=== PATIENT | female | born 1995 | race Caucasian/White ===

== ENCOUNTER → 2016-10-10 | Outpatient (CLI) | payer OTHER ==
[2016-10-11 15:27] LABS: HSV I IgG Interp NEGATIVE (NEGATIVE); HSV II IgG Interp NEGATIVE (NEGATIVE)
== END | disposition home or self-care (01) ==
LOC: MMGSC 14:43
PROVIDERS: ATTEND Family Medicine
DX: Z11.59 Encounter for screening for other viral diseases (principal); Z20.828 Contact with and (suspected) exposure to other viral communicable diseases
CPT/HCPCS: 36415; 86694; 86695; 86696; 87077; 87086; 87186

== ENCOUNTER → 2016-11-14 | Outpatient (CLI) | payer OTHER | LOC: MMGSC 13:54 | PROVIDERS: ATTEND Family Medicine | DX: N91.2 Amenorrhea, unspecified (principal); Z83.2 Family history of diseases of the blood and blood-forming organs and certain disorders involving the immune mechanism | CPT/HCPCS: 36415; 81241; 84703 ==

== ENCOUNTER → 2017-05-25 | Outpatient (CLI) | payer OTHER ==
[2017-05-25 21:24] LABS: Basophils % (A) 0 %; CH 29.3; CHCM 32.9; Eosinophils # (A) 0.1 k/uL (0-0.7); Eosinophils % (A) 2 %; HCT 44.3 % (34.0-46.0); HDW 2.27; HGB 14.2 gm/dL (11.4-16.0); Luc # (Auto) 0.12; Luc % (Auto) 1; Lymphocytes # (A) 2.1 k/uL (1.0-4.8); Lymphocytes % (A) 26 %; MCH 28.8 pg (25.0-35.0); MCHC 32.1 g/dL (31.0-37.0); MCV 89.5 fL (80.0-100.0); Mean Platelet Volume 8.2; Monocytes # (A) 0.3 k/uL (0-1.0); Monocytes % (A) 4 %; Neutrophils # (A) 5.3 k/uL (1.3-7.7); Neutrophils % (A) 66 %; RBC 4.94 m/uL (3.80-5.40); RDW 14.5 % (11.5-15.5); WBC (Perox) 7.78
[2017-05-25 22:15] LABS: ALT 29 U/L (9-52); AST 20 U/L (14-36); Alkaline Phosphatase 59 U/L (38-126); Anion Gap 13 mmol/L; Blood Urea Nitrogen 11 mg/dL (7-17); Calcium 9.9 mg/dL (8.4-10.2); Carbon Dioxide 20 mmol/L (22-30); Chloride 105 mmol/L (98-107); Cholesterol 230 mg/dL (<200); Glucose 94 mg/dL (74-99); HDL Cholesterol 65 mg/dL (40-60); Non-African American GFR(MDRD) >60 (>60 ml/min/1.73 sqM); Potassium 4.4 mmol/L (3.5-5.1); Sodium 138 mmol/L (137-145); Total Bilirubin 0.5 mg/dL (0.2-1.3); Total Protein 7.2 g/dL (6.3-8.2)
== END ==
LOC: MMGSC 09:45
PROVIDERS: ATTEND Family Medicine
DX: N97.9 Female infertility, unspecified (principal); R10.2 Pelvic and perineal pain; R03.0 Elevated blood-pressure reading, without diagnosis of hypertension
CPT/HCPCS: 36415; 80053; 80061; 83001; 83002; 84439; 84443; 85025

== ENCOUNTER 2018-08-29 12:34 | Emergency (ER) | payer OTHER ==
[2018-08-29] MEDS ORDERED: SODIUM CHLORIDE 0.9% 500 ML 500 ML IV STA (13:28)
[2018-08-29] MEDS ORDERED: KETOROLAC 30 MG/ML 1 ML VIAL IVP STA (13:29)
--- NOTE | 2018-08-29 13:49 | ED ---
Chest Pain HPI - General Chief Complaint: Chest Pain Stated Complaint: LEFT LUNG PAIN Time Seen by Provider: 08/29/18 13:15 Source: patient Mode of arrival: ambulatory Limitations: no limitations - History of Present Illness Initial Comments: 23-year-old female complaining of left-sided chest pain 5 days. Patient states that 5 days ago initially felt like nerve pain under her left breast, she states is random sharp, burning in sensation. She states that now it has since spread to her entire chest. At first she thought was initially due to anxiety however she has felt as though her heart skips occasional beat. Patient denies any lower extremities swelling, pain with deep inspiration, cough , fever, chills, IV drug use, pain or swelling, lower extremity edema, nausea, vomiting, jaw pain, upper extremity paresthesias, recent travel on an airplane or immobilization, recent surgery, history of cancer, dyspnea, dyspnea on exertion. Patient does admit to having a viral stomach illness last week however she denies any current abdominal pain, diarrhea, hemoptysis, melena or hematochezia. Remainder ROS was negative. Pt denies . Upon arrival diastolic BP reading elevated, will repeat. HR 98. Patient appears well signs of acute distress. - Related Data Home Medications Medication Instructions Recorded Confirmed [id number] 2 tab PO BID PRN 08/29/18 08/29/18 [Excedrin] Ibuprofen [Motrin] 600 mg PO BID PRN 08/29/18 08/29/18 Previous Rx's Medication Instructions Recorded ALPRAZolam [Xanax] 0.25 mg PO DAILY PRN 3 Days #3 tab 08/29/18 Allergies Allergy/AdvReac Type Severity Reaction Status Date / Time No Known Allergies Allergy Verified 08/29/18 13:36 Review of Systems ROS Statement: Those systems with pertinent positive or pertinent negative responses have been documented in the HPI. ROS Other: All systems not noted in ROS Statement are negative. EKG Findings - EKG Comments: EKG Findings:: A 12-lead EKG was performed and shows the following: Rate is 82bpm, and rhythm is normal sinus with sinus arrhythmia. There are normal QRS complexes and normal R-wave progression. ST segments have no elevation or depression, and LA segments appear normal. Normal EKG. Past Medical History Past Medical History: No Reported History Additional Past Medical History / Comment(s): last one on monday or monday of this week History of Any Multi-Drug Resistant Organisms: None Reported Past Surgical History: Tonsillectomy Additional Past Surgical History / Comment(s): in 7th grade Past Anesthesia/Blood Transfusion Reactions: Postoperative Nausea & Vomiting ( PONV) Past Psychological History: Anxiety, Depression Smoking Status: Former smoker Past Alcohol Use History: None Reported Past Drug Use History: None Reported - Past Family History Father Additional Family Medical History / Comment(s): Father is age 50 with history of alcoholism Mother Family Medical History: Osteoarthritis (OA) Additional Family Medical History / Comment(s): Mother is age 46 and has osteoarthritis and ADD Brother(s) Additional Family Medical History / Comment(s): Patient has 2 younger brothers with no major medical problems. General Exam - General Exam Comments Initial Comments: General: The patient is awake and alert, in no distress, and does not appear acutely ill. Eye: Pupils are equal, round and reactive to light, extra-ocular movements are intact. No nystagmus. There is normal conjunctiva bilaterally. No signs of icterus. Ears, nose, mouth and throat: There are moist mucous membranes and no oral lesions. Neck: The neck is supple, there is no tenderness or JVD. Cardiovascular: There is a regular rate and rhythm. No murmur, rub or gallop is appreciated. Respiratory: Lungs are clear to auscultation, respirations are non-labored, breath sounds are equal. No wheezes, stridor, rales, or rhonchi. Gastrointestinal: Soft, non-distended, non-tender abdomen without masses or organomegaly noted. There is no rebound or guarding present. No CVA tenderness. Bowel sounds are unremarkable. Musculoskeletal: No pain no patient of the anterior chest wall. Normal ROM, no tenderness. Strength 5/5. Sensation intact. Pulses equal bilaterally 2+. Neurological: A&O x 3. CN II-XII intact, There are no obvious motor or sensory deficits. Coordination appears grossly intact. Speech is normal. Skin: Skin is warm and dry and no rashes or lesions are noted. Negative Trevon , no pain along the deep venous system of the lower extremity. No lower extremity edema. Psychiatric: Cooperative, appropriate mood & affect, normal judgment. Limitations: no limitations Course Vital Signs 08/29/18 08/29/18 13:00 15:30 Temperature 98.5 F 99.1 F Pulse Rate 98 80 Respiratory 18 19 Rate Blood Pressure 134/95 123/86 O2 Sat by Pulse 100 100 Oximetry Chest Pain MDM - MDM Patient presented with atypical chest pain. Patient appears well no signs of distress. Vital signs within acceptable limits. Physical examination no abnormal findings noted. Trop, EKG and D-dimer within normal limits. Remainder of laboratory findings unremarkable. Patient is currently menstruating. HCG negative. The side effects patient is stable for discharge with further outpatient follow-up and evaluation. Patient's group with plan and discharged. Patient thinks this is likely due to her anxiety. Patient states she is out of her Ativan she takes 1 mg daily and states she is between primary care physicians beginning care with a new one shortly. Patient was given outside prescription for 0.25 mg of Xanax daily, only 3 tabs. Proper administered she discussed at length the patient as well as risk of overdose. Patient agreeable with plan and discharged. Return parameters discussed at length the patient verbalizes understanding. Case discussed with Dr. Rankin prior to patient's discharge who agrees the impression and plan. Patient discharged appearing well in stable condition. Disposition Clinical Impression: Atypical chest pain Disposition: HOME SELF-CARE Condition: Good Instructions: Chest Pain (ED) Additional Instructions: Please use medication as discussed. Please follow-up with family doctor in the next 1-2 days. Please return to emergency room if the symptoms increase or worsen or for any other concerns, as discussed. Prescriptions: ALPRAZolam [Xanax] 0.25 mg PO DAILY PRN 3 Days #3 tab PRN Reason: Anxiety Is patient prescribed a controlled substance at d/c from ED?: No Referrals: Janet Georges MD [Primary Care Provider] - 1-2 days Time of Disposition: 15:25
[2018-08-29 14:55] LABS: Basophils % (A) 0 %; Eosinophils # (A) 0.1 k/uL (0-0.7); Eosinophils % (A) 1 %; HCT 41.3 % (34.0-46.0); HGB 13.1 gm/dL (11.4-16.0); Lymphocytes # (A) 1.7 k/uL (1.0-4.8); Lymphocytes % (A) 22 %; MCH 26.6 pg (25.0-35.0); MCHC 31.6 g/dL (31.0-37.0); Mean Platelet Volume 6.7; Monocytes # (A) 0.2 k/uL (0-1.0); Monocytes % (A) 3 %; Neutrophils # (A) 5.5 k/uL (1.3-7.7); Neutrophils % (A) 72 %; Platelet Count 318 k/uL (150-450); RBC 4.92 m/uL (3.80-5.40); RDW 13.7 % (11.5-15.5); WBC 7.6 k/uL (3.8-10.6)
[2018-08-29 14:56] LABS: Appearance,Urine Clear (Clear); Bilirubin,Urine Negative (Negative); Blood,Urine Large (Negative); Color,Urine Yellow; Glucose,Urine (UA) Negative (Negative); Ketones,Urine Trace (Negative); Leukocyte Esterase,Urine Negative (Negative); Mucus,Urine Rare /hpf; Nitrite,Urine Negative (Negative); Protein,Urine Negative (Negative); RBC,Urine 57 /hpf (0-5); Specific Gravity,Urine 1.016 (1.001-1.035); Squamous Epithelial Cell,Urine <1 /hpf (0-4); Urobilinogen,Urine <2.0 mg/dL (<2.0)
[2018-08-29 15:05] LABS: D-Dimer 0.21 mg/L FEU (<0.60)
[2018-08-29 15:06] LABS: ALT 34 U/L (9-52); AST 20 U/L (14-36); Albumin 4.4 g/dL (3.5-5.0); Alkaline Phosphatase 51 U/L (38-126); Anion Gap 9 mmol/L; Blood Urea Nitrogen 15 mg/dL (7-17); Calcium 9.4 mg/dL (8.4-10.2); Carbon Dioxide 25 mmol/L (22-30); Chloride 107 mmol/L (98-107); Glucose 92 mg/dL (74-99); Magnesium 2.1 mg/dL (1.6-2.3); Partial Thromboplastin Time 23.3 sec (22.0-30.0); Prothrombin Time 10.3 sec (9.0-12.0); Sodium 141 mmol/L (137-145); Total Bilirubin 0.4 mg/dL (0.2-1.3)
[2018-08-29 15:14] LABS: Creatine Kinase 60 U/L (30-135)
--- NOTE | 2018-08-29 15:16 | XR ---
EXAMINATION TYPE: XR chest 2V DATE OF EXAM: 08/29/2018 COMPARISON: None HISTORY: 23-year-old female with pain TECHNIQUE: PA and lateral views FINDINGS: The cardiomediastinal silhouette, aorta, and pulmonary vasculature are within normal limits. Lungs an d pleural spaces are clear. IMPRESSION: No acute cardiopulmonary process.
[2018-08-29 15:27] LABS: Creatine Kinase MB 0.2 ng/mL (0.0-2.4); Troponin I <0.012 ng/mL (0.000-0.034)
[2018-08-29 15:31] VITALS: BP 123/86; PULSE 80; RESP 19; TEMP 99.1
== END 2018-08-29 15:41 | disposition home or self-care (01) ==
LOC: EC 12:34
DX: R07.89 Other chest pain (principal); F41.9 Anxiety disorder, unspecified; Z87.891 Personal history of nicotine dependence
CPT/HCPCS: 36415; 93005; 85379; 80053; 82550; 82553; 83735; 84484; 85025; 85610; 85730; 81001; 81025; 71046; 99285; 96374; 96361; J1885

== ENCOUNTER → 2018-11-06 | Outpatient (CLI) | payer OTHER ==
--- NOTE | 2018-11-07 14:17 | ECHOF ---
Referral Reason:R00.0 Tachycardia MEASUREMENTS -------- HEIGHT: 157.5 cm WEIGHT: 65.8 kg BP: RVIDd: 2.2 cm (< 3.3) IVSd: 0.9 cm (0.6 - 1.1) LVIDd: 4.2 cm (3.9 - 5.3) LVPWd: 1.0 cm (0.6 - 1.1) IVSs: 1.1 cm LVIDs: 3.1 cm LVPWs: 1.3 cm LA Diam: 2.6 cm (2.7 - 3.8) LAESV Index (A-L): 13.18 ml/m Ao Diam: 3.2 cm (2.0 - 3.7) AV Cusp: 2.3 cm (1.5 - 2.6) LA Diam: 2.8 cm (2.7 - 3.8) EPSS: 0.5 cm MV E Mina: 0.65 m/s MV DecT: 238 ms MV A Mina: 0.84 m/s MV E/A Ratio: 0.77 RAP: 5.00 mmHg RVSP: 11.74 mmHg MV EF SLOPE: 92.36 mm/s (70 - 150) MV EXCURSION: 1.84 cm (> 18.000) FINDINGS -------- Sinus rhythm. This was a technically good study. LV size, wall thickness and systolic function are normal, with an EF greater than 55%. The left crystal tricular size is normal. The right ventricle is normal in size. The left atrial size is normal. The right atrial size is normal. The aortic valve is trileaflet, and appears structurally normal. No aortic stenosis or regurgitation. The mitral valve is normal. There is trace mitral regurgitation. Mild tricuspid regurgitation present. There is no evidence of pulmonary hypertension. The right v entricular systolic pressure, as measured by Doppler, is 11.74mmHg. Trace/mild (physiologic) pulmonic regurgitation. The aortic root size is normal. There is no pericardial effusion. CONCLUSIONS -------- 1. Sinus rhythm. 2. This was a technically good study. 3. LV size, wall thickness and systolic function are normal, with an EF greater than 55%. 4. The left ventricular size is normal. 5. The left atrial size is normal. 6. The aortic valve is trileaflet, and appears structurally normal. No aortic stenosis or regurgitati on. 7. There is trace mitral regurgitation. 8. Mild tricuspid regurgitation present. 9. There is no evidence of pulmonary hypertension. 10. Trace/mild (physiologic) pulmonic regurgitation. 11. The aortic root size is normal. 12. There is no pericardial effusion. ORTHOPEDIC MECHANIC: Anita Kearney RDCS
== END | disposition home or self-care (01) ==
LOC: RADECHMAIN 15:39
PROVIDERS: ATTEND Family Medicine
DX: I07.1 Rheumatic tricuspid insufficiency (principal)
CPT/HCPCS: 93306

== ENCOUNTER 2019-02-11 19:09 | Emergency (ER) | payer OTHER ==
[2019-02-11] MEDS ORDERED: SODIUM CHLORIDE 0.9% 1,000 ML IV STA (19:36)
[2019-02-11 20:02] VITALS: RESP 16
[2019-02-11 20:05] LABS: Basophils % (A) 0 %; Eosinophils # (A) 0.2 k/uL (0-0.7); Eosinophils % (A) 1 %; HGB 13.6 gm/dL (11.4-16.0); Lymphocytes # (A) 2.4 k/uL (1.0-4.8); Lymphocytes % (A) 16 %; MCH 28.3 pg (25.0-35.0); MCHC 33.1 g/dL (31.0-37.0); MCV 85.4 fL (80.0-100.0); Mean Platelet Volume 6.8; Monocytes # (A) 0.5 k/uL (0-1.0); Monocytes % (A) 3 %; Neutrophils # (A) 12.1 k/uL (1.3-7.7); Neutrophils % (A) 79 %; Platelet Count 312 k/uL (150-450); RDW 13.1 % (11.5-15.5); WBC 15.3 k/uL (3.8-10.6)
[2019-02-11 20:09] LABS: Appearance,Urine Clear (Clear); Bilirubin,Urine Negative (Negative); Blood,Urine Negative (Negative); Color,Urine Colorless; Glucose,Urine (UA) Negative (Negative); Ketones,Urine Trace (Negative); Leukocyte Esterase,Urine Negative (Negative); Nitrite,Urine Negative (Negative); Protein,Urine Negative (Negative); Specific Gravity,Urine 1.005 (1.001-1.035); Urobilinogen,Urine <2.0 mg/dL (<2.0)
[2019-02-11 20:15] LABS: ALT 14 U/L (9-52); AST 18 U/L (14-36); African American GFR (CKD) >90 (>60 ml/min/1.73 sqM); Albumin 4.5 g/dL (3.5-5.0); Alkaline Phosphatase 55 U/L (38-126); Anion Gap 9 mmol/L; Blood Urea Nitrogen 10 mg/dL (7-17); Calcium 9.4 mg/dL (8.4-10.2); Carbon Dioxide 22 mmol/L (22-30); Chloride 104 mmol/L (98-107); Glucose 97 mg/dL (74-99); Phosphorus 4.2 mg/dL (2.5-4.5); Potassium 3.7 mmol/L (3.5-5.1); Sodium 135 mmol/L (137-145); Total Bilirubin 0.3 mg/dL (0.2-1.3)
--- NOTE | 2019-02-11 20:31 | ED ---
Recheck HPI - General Chief Complaint: Recheck/Abnormal Lab/Rx Stated Complaint: palpitations/poss med withdrawal Time Seen by Provider: 02/11/19 19:35 Source: patient, RN notes reviewed, old records reviewed Mode of arrival: ambulatory Limitations: no limitations - History of Present Illness Initial Comments: This is a 23-year-old female the ER for evaluation. This patient resents today for evaluation in regards to palpitations. Patient has had palpitations occasionally for years. She currently is positive for , recently taken off her Adderall concerned that she may be having a medication reaction of some sort. Symptoms have been persistent for a few weeks now and patient's presented today for evaluation, she was sent ER by family doctor for evaluation MD Complaint: other -: week(s) Returns Today for: other (Occasionally with recurrent palpitations) Context: planned re-check (Sent to ER for evaluation by primary care) Treatments Prior to Arrival: other (No new medications) - Related Data Home Medications Medication Instructions Recorded Confirmed Ferrous Sulfate [Feosol] 325 mg PO DAILY 02/11/19 02/11/19 [id number] Acid 1 cap PO DAILY 02/11/19 02/11/19 [-U Capsule (formulary)] Allergies Allergy/AdvReac Type Severity Reaction Status Date / Time No Known Allergies Allergy Verified 02/11/19 19:46 Review of Systems ROS Statement: Those systems with pertinent positive or pertinent negative responses have been documented in the HPI. ROS Other: All systems not noted in ROS Statement are negative. Past Medical History Past Medical History: No Reported History Additional Past Medical History / Comment(s): last one on monday or monday of this week History of Any Multi-Drug Resistant Organisms: None Reported Past Surgical History: Tonsillectomy Additional Past Surgical History / Comment(s): in 7th grade Past Anesthesia/Blood Transfusion Reactions: Postoperative Nausea & Vomiting (PONV) Past Psychological History: Anxiety, Depression Smoking Status: Former smoker Past Alcohol Use History: None Reported Past Drug Use History: None Reported - Past Family History Father Additional Family Medical History / Comment(s): Father is age 50 with history of alcoholism Mother Family Medical History: Osteoarthritis (OA) Additional Family Medical History / Comment(s): Mother is age 46 and has osteoarthritis and ADD Brother(s) Additional Family Medical History / Comment(s): Patient has 2 younger brothers with no major medical problems. General Exam Limitations: no limitations General appearance: alert, in no apparent distress Head exam: Present: atraumatic, normocephalic, normal inspection Eye exam: Present: normal appearance, PERRL, EOMI. Absent: scleral icterus, conjunctival injection, periorbital swelling ENT exam: Present: normal exam, mucous membranes moist Neck exam: Present: normal inspection. Absent: tenderness, meningismus, lymphadenopathy Respiratory exam: Present: normal lung sounds bilaterally. Absent: respiratory distress, wheezes, rales, rhonchi, stridor Cardiovascular Exam: Present: regular rate, normal rhythm, normal heart sounds. Absent: systolic murmur, diastolic murmur, rubs, gallop, clicks GI/Abdominal exam: Present: soft, normal bowel sounds. Absent: distended, tenderness, guarding, rebound, rigid Extremities exam: Present: normal inspection, full ROM, normal capillary refill. Absent: tenderness, pedal edema, joint swelling, calf tenderness Back exam: Present: normal inspection Neurological exam: Present: alert, oriented X3, CN II-XII intact Psychiatric exam: Present: normal affect, normal mood Skin exam: Present: warm, dry, intact, normal color. Absent: rash Course Vital Signs 02/11/19 02/11/19 02/11/19 19:23 20:00 21:00 Temperature 99.0 F 98.0 F Pulse Rate 98 80 81 Respiratory 18 16 16 Rate Blood Pressure 113/77 124/69 122/68 O2 Sat by Pulse 99 98 98 Oximetry - Reevaluation(s) Reevaluation #1: Medical record is reviewed Patient is no significant acute distress Medical Decision Making - Medical Decision Making 23 female the ER for palpitations history of palpitations no known diagnosis she has one altered monitor in the past. Patient is not currently taking Adderall secondary to recent positive . Labs look good electrolytes are normal EKG and rhythm strip are normal. Patient can be discharged home - Lab Data Result diagrams: 02/11/19 19:53 02/11/19 19:53 Lab Results 02/11/19 02/11/19 02/11/19 Range/Units 19:53 19:53 19:53 WBC 15.3 H (3.8-10.6) k/uL RBC 4.80 (3.80-5.40) m/uL Hgb 13.6 (11.4-16.0) gm/dL Hct 41.0 (34.0-46.0) % MCV 85.4 (80.0-100.0) fL MCH 28.3 (25.0-35.0) pg MCHC 33.1 (31.0-37.0) g/dL RDW 13.1 (11.5-15.5) % Plt Count 312 (150-450) k/uL Neutrophils % 79 % Lymphocytes % 16 % Monocytes % 3 % Eosinophils % 1 % Basophils % 0 % Neutrophils # 12.1 H (1.3-7.7) k/uL Lymphocytes # 2.4 (1.0-4.8) k/uL Monocytes # 0.5 (0-1.0) k/uL Eosinophils # 0.2 (0-0.7) k/uL Basophils # 0.0 (0-0.2) k/uL Sodium 135 L (137-145) mmol/L Potassium 3.7 (3.5-5.1) mmol/L Chloride 104 (98-107) mmol/L Carbon Dioxide 22 (22-30) mmol/L Anion Gap 9 mmol/L BUN 10 (7-17) mg/dL Creatinine 0.49 L (0.52-1.04) mg/dL Est GFR (CKD-EPI)AfAm >90 (>60 ml/min/1.73 sqM) Est GFR (CKD-EPI)NonAf >90 (>60 ml/min/1.73 sqM) Glucose 97 (74-99) mg/dL Calcium 9.4 (8.4-10.2) mg/dL Phosphorus 4.2 (2.5-4.5) mg/dL Magnesium 2.0 (1.6-2.3) mg/dL Total Bilirubin 0.3 (0.2-1.3) mg/dL AST 18 (14-36) U/L ALT 14 (9-52) U/L Alkaline Phosphatase 55 (38-126) U/L Total Protein 7.0 (6.3-8.2) g/dL Albumin 4.5 (3.5-5.0) g/dL TSH 0.449 L (0.465-4.680) mIU/L HCG, Quant 589182.0 mIU/mL Urine Color Colorless Urine Appearance Clear (Clear) Urine pH 6.0 (5.0-8.0) Ur Specific [place] 1.005 (1.001-1.035) Urine Protein Negative (Negative) Urine Glucose (UA) Negative (Negative) Urine Ketones Trace H (Negative) Urine Blood Negative (Negative) Urine Nitrite Negative (Negative) Urine Bilirubin Negative (Negative) Urine Urobilinogen <2.0 (<2.0) mg/dL Ur Leukocyte Esterase Negative (Negative) - Radiology Data Radiology results: report reviewed (Ultrasound shows positive heart), image reviewed Disposition Clinical Impression: Disposition: HOME SELF-CARE Condition: Good Instructions (If sedation given, give patient instructions): (ED) Is patient prescribed a controlled substance at d/c from ED?: No Referrals: Magnus Peng MD [Primary Care Provider] - 1-2 days
[2019-02-11 21:02] VITALS: BP 122/68; PULSE 81; TEMP 98
--- NOTE | 2019-02-11 21:17 | US ---
EXAMINATION TYPE: Transabdominal DATE OF EXAM: 02/11/2019 8:47 PM COMPARISON: NONE CLINICAL HISTORY: Pain. Pain per order. . EXAM PERFORMED: Transabdominal (TA) EXAM MEASUREMENTS: GESTATIONAL AGE / DATING Physician Established: Not yet established. Dates by LMP: (9 weeks/4 days) EDC: 09/12/2019 Dates by First Scan: No previous, this is first scan (8 weeks/4 days) EDC: 09/19/2019 Dates by Current Scan for: (8 weeks/4 days) EDC: 09/19/2019 MATERNAL ANATOMY Uterus: 9.9 x 9.4 x 8.4 cm Right Ovary: 4.3 x 2.7 x 1.7 cm Left Ovary: 3.3 x 2.0 x 2.1 cm Post CDS / Adnexa: appears wnl Presence of free fluid: none seen Presence of corpus luteal cyst: Area of mixed echogenicity seen left ovary measurin.6 x 1.4 x 1.5 cm Presence of subchorionic bleed: Hypoechoic areas seen adjacent to gestational sac: #1 measurin.4 x 4.1 x 1.2 cm. #2 measurin.9 x 1.6 x 1.0 cm. GESTATION / SURVEY CRL: 2.04 cm (8 weeks/4 days) Yolk Sac (normal less than 6mm): 3 mm Heart Rate: 186 bpm Rhythm: ?Increased heart rate IUP: Viable IUP Date of LMP: 12/06/2018 IMPRESSION: There is probably small subchorionic hemorrhage. The ultrasound gestational age is 8 weeks 4 days.
== END 2019-02-11 21:02 | disposition home or self-care (01) ==
LOC: EC 19:09
DX: O99.89 Other specified diseases and conditions complicating pregnancy, childbirth and the puerperium (principal); R00.2 Palpitations; Z87.891 Personal history of nicotine dependence; Z79.899 Other long term (current) drug therapy; Z3A.08 8 weeks gestation of pregnancy
CPT/HCPCS: 36415; 76801; 80053; 81003; 83735; 84100; 84443; 84702; 85025; 87086; 96360; 99285

== ENCOUNTER → 2019-05-02 | Outpatient (CLI) | payer OTHER ==
--- NOTE | 2019-05-03 10:44 | ECHOF ---
Referral Reason:R00.2 palpitations MEASUREMENTS -------- HEIGHT: 157.5 cm WEIGHT: 68.0 kg BP: RVIDd: 2.6 cm (< 3.3) IVSd: 0.9 cm (0.6 - 1.1) LVIDd: 4.8 cm (3.9 - 5.3) LVPWd: 0.7 cm (0.6 - 1.1) IVSs: 1.1 cm LVIDs: 3.5 cm LVPWs: 1.3 cm LA Diam: 2.6 cm (2.7 - 3.8) LAESV Index (A-L): 19.73 ml/m Ao Diam: 3.1 cm (2.0 - 3.7) AV Cusp: 2.2 cm (1.5 - 2.6) LA Diam: 3.5 cm (2.7 - 3.8) MV EXCURSION: 17.766 mm (> 18.000) MV EF SLOPE: 76 mm/s (70 - 150) EPSS: 1.2 cm MV E Mina: 0.64 m/s MV DecT: 216 ms MV A Mina: 0.75 m/s MV E/A Ratio: 0.85 RAP: 5.00 mmHg RVSP: 24.08 mmHg FINDINGS -------- Sinus rhythm. This was a technically good study. LV size, wall thickness and systolic function are normal, with an EF greater than 55%. The left crystal tricular size is normal. The right ventricle is normal in size. The left atrial size is normal. Normal LA size by volume 22+/-6 ml/m2. The right atrial size is normal. The aortic valve is trileaflet, and appears structurally normal. No aortic stenosis or regurgitation. Mild mitral annular calcification present. Mild mitral regurgitation is present. No regurgitation noted There is no evidence of pulmonary hypertension. The right ventricular syst olic pressure, as measured by Doppler, is 24.08mmHg. There is no pulmonic regurgitation present. The aortic root size is normal. There is no pericardial effusion. CONCLUSIONS -------- 1. Sinus rhythm. 2. This was a technically good study. 3. LV size, wall thickness and systolic function are normal, with an EF greater than 55%. 4. The left ventricular size is normal. 5. The right ventricle is normal in size. 6. The left atrial size is normal. 7. Normal LA size by volume 22+/-6 ml/m2. 8. The right atrial size is normal. 9. The aortic valve is trileaflet, and appears structurally normal. No aortic stenosis or regurgitati on. 10. Mild mitral annular calcification present. 11. Mild mitral regurgitation is present. 12. No regurgitation noted 13. There is no evidence of pulmonary hypertension. 14. The right ventricular systolic pressure, as measured by Doppler, is 24.08mmHg. 15. There is no pulmonic regurgitation present. 16. The aortic root size is normal. 17. There is no pericardial effusion. OPERATIONAL INTELLIGENCE ANALYST: Anita Kearney RDCS
== END | disposition home or self-care (01) ==
LOC: RADECHMAIN 16:26
PROVIDERS: ATTEND Internal Medicine Cardiovascular Disease
DX: I05.1 Rheumatic mitral insufficiency (principal)
CPT/HCPCS: 93306

== ENCOUNTER 2019-06-17 00:42 | Emergency (ER) | payer OTHER ==
[2019-06-17 00:52] VITALS: TEMP 98.2
--- NOTE | 2019-06-17 01:01 | ED ---
Extremity Problem HPI - General Chief complaint: Extremity Problem,Nontraumatic Stated complaint: leg pain Source: patient Mode of arrival: ambulatory Limitations: no limitations - History of Present Illness Initial comments: 24-year-old female currently 28 weeks presenting for tightness in the left thigh. Patient states she had a tight sensation left eye for the past day. Patient states that she was told this could be a blood clot. Patient states that she has not had any trauma or injury to the leg. Denies any recent surgeries. She denies any chest pain shortness of breath. Patient denies any swelling of the right lower extremity. Patient presents immersed. This evening when symptoms persisted to rule out deep venous thrombosis. Review of systems negative patient appears well upon arrival and laboratory. - Related Data Home Medications Medication Instructions Recorded Confirmed Ferrous Sulfate [Feosol] 325 mg PO DAILY 02/11/19 02/11/19 [id number]-[id number] Acid 1 cap PO DAILY 02/11/19 02/11/19 [-U Capsule (formulary)] Allergies Allergy/AdvReac Type Severity Reaction Status Date / Time No Known Allergies Allergy Verified 06/17/19 00:51 Review of Systems ROS Statement: Those systems with pertinent positive or pertinent negative responses have been documented in the HPI. ROS Other: All systems not noted in ROS Statement are negative. Past Medical History Past Medical History: No Reported History Additional Past Medical History / Comment(s): last one on monday or monday of this week History of Any Multi-Drug Resistant Organisms: None Reported Past Surgical History: Tonsillectomy Additional Past Surgical History / Comment(s): in 7th grade Past Anesthesia/Blood Transfusion Reactions: Postoperative Nausea & Vomiting (PONV) Past Psychological History: Anxiety, Depression Smoking Status: Former smoker Past Alcohol Use History: None Reported Past Drug Use History: None Reported - Past Family History Father Additional Family Medical History / Comment(s): Father is age 50 with history of alcoholism Mother Family Medical History: Osteoarthritis (OA) Additional Family Medical History / Comment(s): Mother is age 46 and has osteoarthritis and ADD Brother(s) Additional Family Medical History / Comment(s): Patient has 2 younger brothers with no major medical problems. General Exam - General Exam Comments Initial Comments: General: The patient is awake and alert, in no distress, and does not appear acutely ill. Eye: Pupils are equal, round and reactive to light, extra-ocular movements are intact. No nystagmus. There is normal conjunctiva bilaterally. No signs of icterus. Ears, nose, mouth and throat: There are moist mucous membranes and no oral lesions. Neck: The neck is supple, there is no tenderness or JVD. Cardiovascular: There is a regular rate and rhythm. No murmur, rub or gallop is appreciated. Respiratory: Lungs are clear to auscultation, respirations are non-labored, breath sounds are equal. No wheezes, stridor, rales, or rhonchi. Musculoskeletal: Normal ROM, no tenderness. Strength 5/5. Sensation intact. Pulses equal bilaterally 2+. Neurological: A&O x 3. CN II-XII intact grossly, There are no obvious motor or sensory deficits. Coordination appears grossly intact. Speech is normal. Skin: Skin is warm and dry and no rashes or lesions are noted. (-) Homans. No LE edema or swelling. No calf swelling. Patient has no masses, redness or erythema of the LE b/l. No pain to palpation of posterior knee. No point localized pain to palpation. Patient point to a circumferential area just proximal to the right knee when asked where "tight cramping" sensation is Psychiatric: Cooperative, appropriate mood & affect, normal judgment. Limitations: no limitations Course Vital Signs 06/17/19 00:49 Temperature 98.2 F Pulse Rate 108 H Respiratory 16 Rate Blood Pressure 107/69 O2 Sat by Pulse 97 Oximetry Medical Decision Making - Medical Decision Making 24-year-old female presents emergency department for evaluation of thigh sensation in right leg. Cramping at times. Presented for r/o DVT. No abnormalities on physical examination. US (-) deep venous thrombosis, electrolytes within acceptable limits. Patient appears well. Patient will be discharged with outpatient PCP f/u. .Repeat US may be obtained in 1 week for persistent symptoms. Patient agreeable with discharge. Case discussed with attending. - Lab Data Result diagrams: 06/17/19 01:41 Lab Results 06/17/19 Range/Units 01:41 Sodium 135 L (137-145) mmol/L Potassium 4.0 (3.5-5.1) mmol/L Chloride 106 (98-107) mmol/L Carbon Dioxide 22 (22-30) mmol/L Anion Gap 7 mmol/L BUN 6 L (7-17) mg/dL Creatinine 0.46 L (0.52-1.04) mg/dL Est GFR (CKD-EPI)AfAm >90 (>60 ml/min/1.73 sqM) Est GFR (CKD-EPI)NonAf >90 (>60 ml/min/1.73 sqM) Glucose 99 (74-99) mg/dL Calcium 9.2 (8.4-10.2) mg/dL Disposition Clinical Impression: Leg cramping Disposition: HOME SELF-CARE Condition: Good Instructions (If sedation given, give patient instructions): Leg Cramps (ED) Additional Instructions: Please use medication as discussed. Please follow-up with family doctor in the next 2 days if symptoms are persistent you may repeat ultrasound in 1 week. Please return to emergency room if the symptoms increase or worsen or for any other concerns. Is patient prescribed a controlled substance at d/c from ED?: No Referrals: Magnus Peng MD [Primary Care Provider] - 1-2 days Time of Disposition: 01:54
--- NOTE | 2019-06-17 01:47 | US ---
EXAMINATION TYPE: US venous doppler duplex LE RT DATE OF EXAM: 06/17/2019 1:40 AM COMPARISON: NONE CLINICAL HISTORY: posterior knee pain, preg, sent r/o dvt. SIDE PERFORMED: Right TECHNIQUE: The lower extremity deep venous system is examined utilizing real time linear array sonog aliyah with graded compression, doppler sonography and color-flow sonography. VESSELS IMAGED: External Iliac Vein (EIV) Common Femoral Vein Deep Femoral Vein Greater Saphenous Vein * Femoral Vein Popliteal Vein Small Saphenous Vein * Proximal Calf Veins (* superficial vessels) Right Leg: Negative for DVT IMPRESSION: No evidence of deep venous thrombosis in the right leg. Negative exam.
[2019-06-17 02:23] LABS: African American GFR (CKD) >90 (>60 ml/min/1.73 sqM); Anion Gap 7 mmol/L; Blood Urea Nitrogen 6 mg/dL (7-17); Calcium 9.2 mg/dL (8.4-10.2); Carbon Dioxide 22 mmol/L (22-30); Chloride 106 mmol/L (98-107); Glucose 99 mg/dL (74-99); Sodium 135 mmol/L (137-145)
[2019-06-17 03:47] VITALS: BP 117/75; PULSE 97; RESP 15
== END 2019-06-17 03:06 | disposition home or self-care (01) ==
LOC: EC 00:42
DX: O99.89 Other specified diseases and conditions complicating pregnancy, childbirth and the puerperium (principal); R25.2 Cramp and spasm; Z87.891 Personal history of nicotine dependence; Z3A.28 28 weeks gestation of pregnancy; Z82.61 Family history of arthritis
CPT/HCPCS: 36415; 80048; 99284

== ENCOUNTER → 2019-10-14 | Outpatient (CLI) | payer OTHER ==
[2019-10-14 09:28] LABS: HDL Cholesterol 58 mg/dL (40-60); Triglycerides 275 mg/dL (<150)
[2019-10-14 09:34] LABS: LDL Cholesterol,Calculated 240 mg/dL (0-99)
[2019-10-14 09:37] LABS: Cholesterol 353 mg/dL (<200)
--- NOTE | 2019-10-14 10:34 | ECHOF ---
Referral Reason:E78.00 Pure hypercholesterolemia, unspecified MEASUREMENTS -------- HEIGHT: 157.5 cm WEIGHT: 72.6 kg BP: RVIDd: 2.7 cm (< 3.3) IVSd: 0.7 cm (0.6 - 1.1) LVIDd: 4.7 cm (3.9 - 5.3) LVPWd: 1.1 cm (0.6 - 1.1) IVSs: 1.1 cm LVIDs: 3.6 cm LVPWs: 1.1 cm LAESV Index (A-L): 17.33 ml/m Ao Diam: 2.9 cm (2.0 - 3.7) AV Cusp: 2.1 cm (1.5 - 2.6) LA Diam: 2.9 cm (2.7 - 3.8) MV EXCURSION: 13.970 mm (> 18.000) MV EF SLOPE: 110 mm/s (70 - 150) EPSS: 0.9 cm MV E Mina: 0.57 m/s MV DecT: 167 ms MV A Mina: 0.72 m/s MV E/A Ratio: 0.80 AR PHT: 293 ms RAP: 5.00 mmHg RVSP: 17.74 mmHg FINDINGS -------- Sinus rhythm. This was a technically good study. The left ventricular size is normal. Left ventricular wall thickness is normal. Overall left vent ricular systolic function is mildly impaired with, an EF between 45 - 50 %. The diastolic filling p attern is normal for the age of the patient 8.42. The right ventricle is normal in size. The left atrial size is normal. Normal LA size by volume 22+/-6 ml/m2. The right atrial size is normal. The aortic valve is trileaflet and appears structurally normal. The mitral valve is normal. The mitral valve leaflets are mildly thickened. Mild mitral annular c alcification present. There is trace mitral regurgitation. The tricuspid valve appears structurally normal. Trace tricuspid regurgitation present. Right crystal tricular systolic pressure is normal at < 35 mmHg. There is no pulmonic regurgitation present. The aortic root size is normal. Normal inferior vena cava with normal inspiratory collapse consistent with estimated right atrial pre ssure of 5 mmHg. There is no pericardial effusion. CONCLUSIONS -------- 1. Sinus rhythm. 2. This was a technically good study. 3. The left ventricular size is normal. 4. Left ventricular wall thickness is normal. 5. Overall left ventricular systolic function is mildly impaired with, an EF between 45 - 50 %. 6. The diastolic filling pattern is normal for the age of the patient 8.42 7. The right ventricle is normal in size. 8. The left atrial size is normal. 9. Normal LA size by volume 22+/-6 ml/m2. 10. The right atrial size is normal. 11. The aortic valve is trileaflet and appears structurally normal. 12. The mitral valve is normal. 13. The mitral valve leaflets are mildly thickened. 14. Mild mitral annular calcification present. 15. There is trace mitral regurgitation. 16. The tricuspid valve appears structurally normal. 17. Trace tricuspid regurgitation present. 18. Right ventricular systolic pressure is normal at < 35 mmHg. 19. There is no pulmonic regurgitation present. 20. The aortic root size is normal. 21. Normal inferior vena cava with normal inspiratory collapse consistent with estimated right atrial pressure of 5 mmHg. 22. There is no pericardial effusion. EXPERIMENTAL MECHANIC: Alia Cespedes RDCS
== END | disposition home or self-care (01) ==
LOC: RADECHMAIN 08:18
PROVIDERS: ATTEND Internal Medicine Cardiovascular Disease
DX: R00.2 Palpitations (principal); E78.00 Pure hypercholesterolemia, unspecified
CPT/HCPCS: 80061; 93306

== ENCOUNTER 2019-10-24 16:14 | Emergency (ER) | payer OTHER ==
[2019-10-24 16:29] VITALS: PULSE 90
--- NOTE | 2019-10-24 16:47 | ED ---
General Adult HPI - General Chief complaint: Shortness of Breath Stated complaint: ELISABETH Time Seen by Provider: 10/24/19 16:27 Source: patient, RN notes reviewed Mode of arrival: ambulatory Limitations: no limitations - History of Present Illness Initial comments: 24-year-old female currently 7 weeks presents to the emergency department for a chief complaint of shortness of breath. Patient states she has had shortness of breath for about 3-4 days. States she feels like she cannot take a deep breath. 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 Patient recently had an echocardiogram performed on 10/14/2019 which showed overall left ventricular systolic function mildly impaired with an ejection fraction between 45-50%. States that she was recently started on carvedilol, lisinopril about a week and a half ago. States that today she called her floor sweeper who is out of [place] to discuss his shortness of breath and they wanted her evaluated to make sure her "heart is not getting worse." Denies any pain with deep breathing. Patient has no other complaints at this time including chest pain, abdominal pain, nausea or vomiting, headache, or visual changes. - Related Data Home Medications Medication Instructions Recorded Confirmed Ferrous Sulfate [Feosol] 325 mg PO DAILY 02/11/19 02/11/19 Jzs-[id number]-Wcoup Acid 1 cap PO DAILY 02/11/19 02/11/19 [-U Capsule (formulary)] Allergies Allergy/AdvReac Type Severity Reaction Status Date / Time No Known Allergies Allergy Verified 10/24/19 16:29 Review of Systems ROS Statement: Those systems with pertinent positive or pertinent negative responses have been documented in the HPI. ROS Other: All systems not noted in ROS Statement are negative. 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 History of Any Multi-Drug Resistant Organisms: None Reported Past Surgical History: Tonsillectomy Additional Past Surgical History / Comment(s): in 7th grade Past Anesthesia/Blood Transfusion Reactions: Postoperative Nausea & Vomiting (PONV) Past Psychological History: Anxiety, Depression Smoking Status: Former smoker Past Alcohol Use History: None Reported Past Drug Use History: None Reported - Past Family History Father Additional Family Medical History / Comment(s): Father is age 50 with history of alcoholism Mother Family Medical History: Osteoarthritis (OA) Additional Family Medical History / Comment(s): Mother is age 46 and has osteoarthritis and ADD Brother(s) Additional Family Medical History / Comment(s): Patient has 2 younger brothers with no major medical problems. General Exam Limitations: no limitations General appearance: alert, in no apparent distress Head exam: Present: atraumatic, normocephalic, normal inspection Eye exam: Present: normal appearance, PERRL, EOMI. Absent: scleral icterus, conjunctival injection, periorbital swelling ENT exam: Present: normal exam, mucous membranes moist Neck exam: Present: normal inspection, full ROM. Absent: tenderness, meningismus, lymphadenopathy Respiratory exam: Present: normal lung sounds bilaterally. Absent: respiratory distress, wheezes, rales, rhonchi, stridor Cardiovascular Exam: Present: regular rate, normal rhythm, normal heart sounds. Absent: systolic murmur, diastolic murmur, rubs, gallop, clicks GI/Abdominal exam: Present: soft, normal bowel sounds. Absent: distended, tenderness, guarding, rebound, rigid Neurological exam: Present: alert Course Vital Signs 10/24/19 16:26 Temperature 98.7 F Pulse Rate 90 Respiratory 18 Rate Blood Pressure 141/92 O2 Sat by Pulse 100 Oximetry EKG Findings - EKG Comments: EKG Findings:: Normal sinus rhythm, ventricular rate 84, WI interval 152, QTC 439 Medical Decision Making - Medical Decision Making Vitals are stable. Patient is 100% on room air. Physical exam is unremarkable. EKG shows a normal sinus rhythm. CBC CMP unremarkable. Urinalysis negative. Chest x-ray shows a normal chest. BNP is 43. No edema in the legs. No evidence of overt heart failure. Troponin and d-dimer are negative. Patient reevaluated, well-appearing. Does not feel short of breath at this time. Discussed this case with Dr. Rankin. At this time we recommend she follow up with her floor sweeper. I discussed her to return parameters including any worsening symptoms or increased shortness of breath. - Lab Data Result diagrams: 10/24/19 16:52 10/24/19 16:52 Lab Results 10/24/19 10/24/19 10/24/19 Range/Units 16:52 16:52 16:52 WBC 8.0 (3.8-10.6) k/uL RBC 4.87 (3.80-5.40) m/uL Hgb 13.7 (11.4-16.0) gm/dL Hct 41.5 (34.0-46.0) % MCV 85.2 (80.0-100.0) fL MCH 28.1 (25.0-35.0) pg MCHC 32.9 (31.0-37.0) g/dL RDW 13.4 (11.5-15.5) % Plt Count 274 (150-450) k/uL Neutrophils % 63 % Lymphocytes % 29 % Monocytes % 3 % Eosinophils % 3 % Basophils % 0 % Neutrophils # 5.0 (1.3-7.7) k/uL Lymphocytes # 2.3 (1.0-4.8) k/uL Monocytes # 0.2 (0-1.0) k/uL Eosinophils # 0.3 (0-0.7) k/uL Basophils # 0.0 (0-0.2) k/uL PT 10.3 (9.0-12.0) sec INR 1.0 (<1.2) APTT 23.5 (22.0-30.0) sec D-Dimer (<0.60) mg/L FEU Sodium (137-145) mmol/L Potassium (3.5-5.1) mmol/L Chloride (98-107) mmol/L Carbon Dioxide (22-30) mmol/L Anion Gap mmol/L BUN (7-17) mg/dL Creatinine (0.52-1.04) mg/dL Est GFR (CKD-EPI)AfAm (>60 ml/min/1.73 sqM) Est GFR (CKD-EPI)NonAf (>60 ml/min/1.73 sqM) Glucose (74-99) mg/dL Calcium (8.4-10.2) mg/dL Magnesium (1.6-2.3) mg/dL Total Bilirubin (0.2-1.3) mg/dL AST (14-36) U/L ALT (4-34) U/L Alkaline Phosphatase (38-126) U/L Troponin I (0.000-0.034) ng/mL NT-Pro-B Natriuret Pep pg/mL Total Protein (6.3-8.2) g/dL Albumin (3.5-5.0) g/dL Urine Color Colorless Urine Appearance Clear (Clear) Urine pH 7.0 (5.0-8.0) Ur Specific [place] 1.006 (1.001-1.035) Urine Protein Negative (Negative) Urine Glucose (UA) Negative (Negative) Urine Ketones Negative (Negative) Urine Blood Negative (Negative) Urine Nitrite Negative (Negative) Urine Bilirubin Negative (Negative) Urine Urobilinogen <2.0 (<2.0) mg/dL Ur Leukocyte Esterase Negative (Negative) Urine HCG, Qual (Not Detectd) 10/24/19 10/24/19 10/24/19 Range/Units 16:52 16:52 16:52 WBC (3.8-10.6) k/uL RBC (3.80-5.40) m/uL Hgb (11.4-16.0) gm/dL Hct (34.0-46.0) % MCV (80.0-100.0) fL MCH (25.0-35.0) pg MCHC (31.0-37.0) g/dL RDW (11.5-15.5) % Plt Count (150-450) k/uL Neutrophils % % Lymphocytes % % Monocytes % % Eosinophils % % Basophils % % Neutrophils # (1.3-7.7) k/uL Lymphocytes # (1.0-4.8) k/uL Monocytes # (0-1.0) k/uL Eosinophils # (0-0.7) k/uL Basophils # (0-0.2) k/uL PT (9.0-12.0) sec INR (<1.2) APTT (22.0-30.0) sec D-Dimer (<0.60) mg/L FEU Sodium 139 (137-145) mmol/L Potassium 4.0 (3.5-5.1) mmol/L Chloride 107 (98-107) mmol/L Carbon Dioxide 23 (22-30) mmol/L Anion Gap 9 mmol/L BUN 12 (7-17) mg/dL Creatinine 0.59 (0.52-1.04) mg/dL Est GFR (CKD-EPI)AfAm >90 (>60 ml/min/1.73 sqM) Est GFR (CKD-EPI)NonAf >90 (>60 ml/min/1.73 sqM) Glucose 90 (74-99) mg/dL Calcium 9.4 (8.4-10.2) mg/dL Magnesium 2.1 (1.6-2.3) mg/dL Total Bilirubin 0.2 (0.2-1.3) mg/dL AST 23 (14-36) U/L ALT 22 (4-34) U/L Alkaline Phosphatase 75 (38-126) U/L Troponin I <0.012 (0.000-0.034) ng/mL NT-Pro-B Natriuret Pep pg/mL Total Protein 6.6 (6.3-8.2) g/dL Albumin 4.2 (3.5-5.0) g/dL Urine Color Urine Appearance (Clear) Urine pH (5.0-8.0) Ur Specific [place] (1.001-1.035) Urine Protein (Negative) Urine Glucose (UA) (Negative) Urine Ketones (Negative) Urine Blood (Negative) Urine Nitrite (Negative) Urine Bilirubin (Negative) Urine Urobilinogen (<2.0) mg/dL Ur Leukocyte Esterase (Negative) Urine HCG, Qual Not Detected (Not Detectd) 10/24/19 10/24/19 Range/Units 16:52 16:53 WBC (3.8-10.6) k/uL RBC (3.80-5.40) m/uL Hgb (11.4-16.0) gm/dL Hct (34.0-46.0) % MCV (80.0-100.0) fL MCH (25.0-35.0) pg MCHC (31.0-37.0) g/dL RDW (11.5-15.5) % Plt Count (150-450) k/uL Neutrophils % % Lymphocytes % % Monocytes % % Eosinophils % % Basophils % % Neutrophils # (1.3-7.7) k/uL Lymphocytes # (1.0-4.8) k/uL Monocytes # (0-1.0) k/uL Eosinophils # (0-0.7) k/uL Basophils # (0-0.2) k/uL PT (9.0-12.0) sec INR (<1.2) APTT (22.0-30.0) sec D-Dimer <0.17 (<0.60) mg/L FEU Sodium (137-145) mmol/L Potassium (3.5-5.1) mmol/L Chloride (98-107) mmol/L Carbon Dioxide (22-30) mmol/L Anion Gap mmol/L BUN (7-17) mg/dL Creatinine (0.52-1.04) mg/dL Est GFR (CKD-EPI)AfAm (>60 ml/min/1.73 sqM) Est GFR (CKD-EPI)NonAf (>60 ml/min/1.73 sqM) Glucose (74-99) mg/dL Calcium (8.4-10.2) mg/dL Magnesium (1.6-2.3) mg/dL Total Bilirubin (0.2-1.3) mg/dL AST (14-36) U/L ALT (4-34) U/L Alkaline Phosphatase (38-126) U/L Troponin I (0.000-0.034) ng/mL NT-Pro-B Natriuret Pep 43 pg/mL Total Protein (6.3-8.2) g/dL Albumin (3.5-5.0) g/dL Urine Color Urine Appearance (Clear) Urine pH (5.0-8.0) Ur Specific [place] (1.001-1.035) Urine Protein (Negative) Urine Glucose (UA) (Negative) Urine Ketones (Negative) Urine Blood (Negative) Urine Nitrite (Negative) Urine Bilirubin (Negative) Urine Urobilinogen (<2.0) mg/dL Ur Leukocyte Esterase (Negative) Urine HCG, Qual (Not Detectd) Disposition Clinical Impression: Shortness of breath Disposition: HOME SELF-CARE Condition: Good Instructions (If sedation given, give patient instructions): Shortness of Breath (ED) Additional Instructions: Please follow-up with your floor sweeper and primary care in 1-2 days. If you have any worsening symptoms or increased shortness of breath return to the emergency department. Is patient prescribed a controlled substance at d/c from ED?: No Referrals: Magnus Peng MD [Primary Care Provider] - 1-2 days Time of Disposition: 18:37
[2019-10-24 17:09] LABS: Appearance,Urine Clear (Clear); Basophils % (A) 0 %; Bilirubin,Urine Negative (Negative); Blood,Urine Negative (Negative); Color,Urine Colorless; Eosinophils # (A) 0.3 k/uL (0-0.7); Eosinophils % (A) 3 %; Glucose,Urine (UA) Negative (Negative); HCT 41.5 % (34.0-46.0); HGB 13.7 gm/dL (11.4-16.0); Ketones,Urine Negative (Negative); Leukocyte Esterase,Urine Negative (Negative); Lymphocytes # (A) 2.3 k/uL (1.0-4.8); Lymphocytes % (A) 29 %; MCH 28.1 pg (25.0-35.0); MCHC 32.9 g/dL (31.0-37.0); MCV 85.2 fL (80.0-100.0); Mean Platelet Volume 6.9; Monocytes # (A) 0.2 k/uL (0-1.0); Monocytes % (A) 3 %; Neutrophils % (A) 63 %; Nitrite,Urine Negative (Negative); Platelet Count 274 k/uL (150-450); Protein,Urine Negative (Negative); RBC 4.87 m/uL (3.80-5.40); RDW 13.4 % (11.5-15.5); Specific Gravity,Urine 1.006 (1.001-1.035); Urobilinogen,Urine <2.0 mg/dL (<2.0)
[2019-10-24 17:16] LABS: ALT 22 U/L (4-34); AST 23 U/L (14-36); African American GFR (CKD) >90 (>60 ml/min/1.73 sqM); Albumin 4.2 g/dL (3.5-5.0); Alkaline Phosphatase 75 U/L (38-126); Anion Gap 9 mmol/L; Blood Urea Nitrogen 12 mg/dL (7-17); Calcium 9.4 mg/dL (8.4-10.2); Carbon Dioxide 23 mmol/L (22-30); Chloride 107 mmol/L (98-107); Glucose 90 mg/dL (74-99); Magnesium 2.1 mg/dL (1.6-2.3); Non-African American GFR(CKD) >90 (>60 ml/min/1.73 sqM); Sodium 139 mmol/L (137-145); Total Bilirubin 0.2 mg/dL (0.2-1.3); Total Protein 6.6 g/dL (6.3-8.2)
[2019-10-24 17:18] LABS: Partial Thromboplastin Time 23.5 sec (22.0-30.0); Prothrombin Time 10.3 sec (9.0-12.0)
--- NOTE | 2019-10-24 17:18 | XR ---
EXAMINATION TYPE: XR chest 2V DATE OF EXAM: 10/24/2019 COMPARISON: August 29, 2018 HISTORY: Difficulty breathing TECHNIQUE: FINDINGS: Heart and mediastinum are normal. Lungs are clear. Diaphragm is normal. There are chest shar ds. Bony thorax appears normal. IMPRESSION: Normal chest. No change.
[2019-10-24 18:51] VITALS: BP 120/85; RESP 16; TEMP 98.3
== END 2019-10-24 18:50 | disposition home or self-care (01) ==
LOC: EC 16:14
DX: R06.02 Shortness of breath (principal); O90.3 Peripartum cardiomyopathy; Z87.891 Personal history of nicotine dependence; Z90.89 Acquired absence of other organs
CPT/HCPCS: 36415; 71046; 80053; 81003; 81025; 83735; 83880; 84484; 85025; 85379; 85610; 85730; 93005; 99285

== ENCOUNTER 2020-06-05 19:18 | Emergency (ER) | payer OTHER ==
[2020-06-05 19:30] VITALS: RESP 18; TEMP 98.4
--- NOTE | 2020-06-05 19:31 | ED ---
Abdominal Pain HPI - General Chief Complaint: Abdominal Pain Stated Complaint: Rt Abd Pain, Nausea Time Seen by Provider: 06/05/20 19:30 Source: patient Mode of arrival: ambulatory Limitations: no limitations - History of Present Illness Initial Comments: 25yo with hx of cardiomyopathy with latest EF of 55%, currently on carvedilol, lisinopril and atorvastatin presenting to the ER today for cc of lightheaded on and off x 1 month that is accompanied by diaphoresis, exertional as well as RUQ pain x 2 weeks accompanied by nausea, loose stools and greasy appearing urine. Patient states that she has been contacting her PCP Dr. Calloway about these symptoms and was recently prescribed antibiotics secondary to having an elevated white count on outpatient laboratory studies she states that she has completed the antibiotics course but the symptoms persist. Patient states it is an aching pain that increasing with eating and it radiates from the RUQ to the right side of the back. Patient denies vomiting, bloody stools, dark tarry stools, she denies fevers, chest pain, leg swelling or SOB. Patient denies pelvic pain, vaginal discharge or concern for STIs. Patient appears well nontoxic on arrival. HR is elevated. - Related Data Home Medications Medication Instructions Recorded Confirmed Ferrous Sulfate [Feosol] 325 mg PO DAILY 02/11/19 02/11/19 [id number] Acid 1 cap PO DAILY 02/11/19 02/11/19 [-U Capsule (formulary)] Previous Rx's Medication Instructions Recorded Pantoprazole Sodium [Protonix] 20 mg PO DAILY 7 Days #7 tablet. 06/05/20 Allergies Allergy/AdvReac Type Severity Reaction Status Date / Time No Known Allergies Allergy Verified 06/05/20 19:30 Review of Systems ROS Statement: Those systems with pertinent positive or pertinent negative responses have been documented in the HPI. ROS Other: All systems not noted in ROS Statement are negative. 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 History of Any Multi-Drug Resistant Organisms: None Reported Past Surgical History: Tonsillectomy Additional Past Surgical History / Comment(s): in 7th grade Past Anesthesia/Blood Transfusion Reactions: Postoperative Nausea & Vomiting (PONV) Past Psychological History: Anxiety, Depression Smoking Status: Never smoker Past Alcohol Use History: None Reported Past Drug Use History: None Reported - Past Family History Father Additional Family Medical History / Comment(s): Father is age 50 with history of alcoholism Mother Family Medical History: Osteoarthritis (OA) Additional Family Medical History / Comment(s): Mother is age 46 and has osteoarthritis and ADD Brother(s) Additional Family Medical History / Comment(s): Patient has 2 younger brothers with no major medical problems. General Exam - General Exam Comments Initial Comments: General: The patient is awake and alert, in no distress, and does not appear acutely ill. Eye: +3 mm pupils are equal, round and reactive to light, extra-ocular movements are intact. No nystagmus. There is normal conjunctiva bilaterally. No signs of icterus. Ears, nose, mouth and throat: There are moist mucous membranes and no oral lesions. Neck: The neck is supple, there is no tenderness or JVD. Cardiovascular: There is a regular rate and rhythm. No murmur, rub or gallop is appreciated. Respiratory: Lungs are clear to auscultation, respirations are non-labored, breath sounds are equal. No wheezes, stridor, rales, or rhonchi. Gastrointestinal: Soft, non-distended, tenderness RUQ mild in nature, abdomen without masses or organomegaly noted. There is no rebound or guarding present. Musculoskeletal: Normal ROM, no tenderness. Strength 5/5. Sensation intact. Radial pulses equal bilaterally 2+. Neurological: A&O x 3. CN II-XII intact grossly, There are no obvious motor or sensory deficits. Coordination appears grossly intact. Speech is normal. Skin: Skin is warm and dry and no rashes or lesions are noted. Psychiatric: Cooperative, appropriate mood & affect, normal judgment. Limitations: no limitations Course Vital Signs 06/05/20 06/05/20 19:25 21:07 Temperature 98.4 F Pulse Rate 116 H Pulse Rate [ 80 Sitting Pulse Oximetery] Pulse Rate [ 87 Standing Pulse Oximetery] Pulse Rate [ 87 Supine Pulse Oximetery] Respiratory 18 18 Rate Blood Pressure 117/77 Blood Pressure 111/75 [Left Arm Sitting] Blood Pressure 110/78 [Left Arm Standing] Blood Pressure 118/76 [Left Arm Supine] O2 Sat by Pulse 98 Oximetry Medical Decision Making - Medical Decision Making EKG WNL. Labs stable. CXR clear. No extremity swelling. No orthostati changes. HR improved after sitting. Patient has mild RUQ pain. concerned for ulcer states lot sof stress. Gallbladder WNL. No LFT elevation, no lipase elevation or elevated biliribuin. No blood in urine. No fevers. Patient given protonix. At this time I feel patient is stable for outpatient f/u. Patient agreeable will trial outpatient protonix. Discussed case with Dr. Rosario who is agreeable to care plan and discharge. - Lab Data Result diagrams: 06/05/20 19:40 06/05/20 19:40 Lab Results 06/05/20 06/05/20 06/05/20 Range/Units 19:40 19:40 19:40 WBC 10.6 (3.8-10.6) k/uL RBC 4.84 (3.80-5.40) m/uL Hgb 14.0 (11.4-16.0) gm/dL Hct 42.8 (34.0-46.0) % MCV 88.3 (80.0-100.0) fL MCH 28.9 (25.0-35.0) pg MCHC 32.7 (31.0-37.0) g/dL RDW 12.4 (11.5-15.5) % Plt Count 264 (150-450) k/uL Neutrophils % 66 % Lymphocytes % 26 % Monocytes % 4 % Eosinophils % 3 % Basophils % 1 % Neutrophils # 7.0 (1.3-7.7) k/uL Lymphocytes # 2.7 (1.0-4.8) k/uL Monocytes # 0.4 (0-1.0) k/uL Eosinophils # 0.3 (0-0.7) k/uL Basophils # 0.1 (0-0.2) k/uL D-Dimer (<0.60) mg/L FEU Sodium (137-145) mmol/L Potassium (3.5-5.1) mmol/L Chloride (98-107) mmol/L Carbon Dioxide (22-30) mmol/L Anion Gap mmol/L BUN (7-17) mg/dL Creatinine (0.52-1.04) mg/dL Est GFR (CKD-EPI)AfAm (>60 ml/min/1.73 sqM) Est GFR (CKD-EPI)NonAf (>60 ml/min/1.73 sqM) Glucose (74-99) mg/dL Calcium (8.4-10.2) mg/dL Total Bilirubin (0.2-1.3) mg/dL AST (14-36) U/L ALT (4-34) U/L Alkaline Phosphatase (38-126) U/L Troponin I (0.000-0.034) ng/mL NT-Pro-B Natriuret Pep pg/mL Total Protein (6.3-8.2) g/dL Albumin (3.5-5.0) g/dL Amylase (30-110) U/L Lipase (23-300) U/L Urine Color Colorless Urine Appearance Clear (Clear) Urine pH 7.0 (5.0-8.0) Ur Specific [place] 1.002 (1.001-1.035) Urine Protein Negative (Negative) Urine Glucose (UA) Negative (Negative) Urine Ketones Negative (Negative) Urine Blood Negative (Negative) Urine Nitrite Negative (Negative) Urine Bilirubin Negative (Negative) Urine Urobilinogen <2.0 (<2.0) mg/dL Ur Leukocyte Esterase Negative (Negative) Urine HCG, Qual Not Detected (Not Detectd) 06/05/20 06/05/20 06/05/20 Range/Units 19:40 20:51 20:51 WBC (3.8-10.6) k/uL RBC (3.80-5.40) m/uL Hgb (11.4-16.0) gm/dL Hct (34.0-46.0) % MCV (80.0-100.0) fL MCH (25.0-35.0) pg MCHC (31.0-37.0) g/dL RDW (11.5-15.5) % Plt Count (150-450) k/uL Neutrophils % % Lymphocytes % % Monocytes % % Eosinophils % % Basophils % % Neutrophils # (1.3-7.7) k/uL Lymphocytes # (1.0-4.8) k/uL Monocytes # (0-1.0) k/uL Eosinophils # (0-0.7) k/uL Basophils # (0-0.2) k/uL D-Dimer (<0.60) mg/L FEU Sodium 137 (137-145) mmol/L Potassium 4.0 (3.5-5.1) mmol/L Chloride 106 (98-107) mmol/L Carbon Dioxide 24 (22-30) mmol/L Anion Gap 7 mmol/L BUN 10 (7-17) mg/dL Creatinine 0.58 (0.52-1.04) mg/dL Est GFR (CKD-EPI)AfAm >90 (>60 ml/min/1.73 sqM) Est GFR (CKD-EPI)NonAf >90 (>60 ml/min/1.73 sqM) Glucose 95 (74-99) mg/dL Calcium 9.4 (8.4-10.2) mg/dL Total Bilirubin 0.4 (0.2-1.3) mg/dL AST 22 (14-36) U/L ALT 15 (4-34) U/L Alkaline Phosphatase 63 (38-126) U/L Troponin I <0.012 (0.000-0.034) ng/mL NT-Pro-B Natriuret Pep 22 pg/mL Total Protein 6.8 (6.3-8.2) g/dL Albumin 4.5 (3.5-5.0) g/dL Amylase 69 (30-110) U/L Lipase 203 (23-300) U/L Urine Color Urine Appearance (Clear) Urine pH (5.0-8.0) Ur Specific [place] (1.001-1.035) Urine Protein (Negative) Urine Glucose (UA) (Negative) Urine Ketones (Negative) Urine Blood (Negative) Urine Nitrite (Negative) Urine Bilirubin (Negative) Urine Urobilinogen (<2.0) mg/dL Ur Leukocyte Esterase (Negative) Urine HCG, Qual (Not Detectd) 06/05/20 Range/Units 20:51 WBC (3.8-10.6) k/uL RBC (3.80-5.40) m/uL Hgb (11.4-16.0) gm/dL Hct (34.0-46.0) % MCV (80.0-100.0) fL MCH (25.0-35.0) pg MCHC (31.0-37.0) g/dL RDW (11.5-15.5) % Plt Count (150-450) k/uL Neutrophils % % Lymphocytes % % Monocytes % % Eosinophils % % Basophils % % Neutrophils # (1.3-7.7) k/uL Lymphocytes # (1.0-4.8) k/uL Monocytes # (0-1.0) k/uL Eosinophils # (0-0.7) k/uL Basophils # (0-0.2) k/uL D-Dimer <0.17 (<0.60) mg/L FEU Sodium (137-145) mmol/L Potassium (3.5-5.1) mmol/L Chloride (98-107) mmol/L Carbon Dioxide (22-30) mmol/L Anion Gap mmol/L BUN (7-17) mg/dL Creatinine (0.52-1.04) mg/dL Est GFR (CKD-EPI)AfAm (>60 ml/min/1.73 sqM) Est GFR (CKD-EPI)NonAf (>60 ml/min/1.73 sqM) Glucose (74-99) mg/dL Calcium (8.4-10.2) mg/dL Total Bilirubin (0.2-1.3) mg/dL AST (14-36) U/L ALT (4-34) U/L Alkaline Phosphatase (38-126) U/L Troponin I (0.000-0.034) ng/mL NT-Pro-B Natriuret Pep pg/mL Total Protein (6.3-8.2) g/dL Albumin (3.5-5.0) g/dL Amylase (30-110) U/L Lipase (23-300) U/L Urine Color Urine Appearance (Clear) Urine pH (5.0-8.0) Ur Specific [place] (1.001-1.035) Urine Protein (Negative) Urine Glucose (UA) (Negative) Urine Ketones (Negative) Urine Blood (Negative) Urine Nitrite (Negative) Urine Bilirubin (Negative) Urine Urobilinogen (<2.0) mg/dL Ur Leukocyte Esterase (Negative) Urine HCG, Qual (Not Detectd) Disposition Clinical Impression: Upper abdominal pain, Nausea Disposition: HOME SELF-CARE Condition: Good Instructions (If sedation given, give patient instructions): Abdominal Pain (ED) Additional Instructions: Please use medication as discussed. Please follow-up with family doctor in the next 2 days.. Please return to emergency room if the symptoms increase or worsen or for any other concerns. Prescriptions: Pantoprazole Sodium [Protonix] 20 mg PO DAILY 7 Days #7 tablet.dr Is patient prescribed a controlled substance at d/c from ED?: No Referrals: Magnus Peng MD [Primary Care Provider] - 1-2 days Time of Disposition: 21:52
[2020-06-05 19:55] LABS: Basophils # (A) 0.1 k/uL (0-0.2); Basophils % (A) 1 %; Eosinophils # (A) 0.3 k/uL (0-0.7); Eosinophils % (A) 3 %; HCT 42.8 % (34.0-46.0); Lymphocytes # (A) 2.7 k/uL (1.0-4.8); Lymphocytes % (A) 26 %; MCH 28.9 pg (25.0-35.0); MCHC 32.7 g/dL (31.0-37.0); MCV 88.3 fL (80.0-100.0); Mean Platelet Volume 6.9; Monocytes # (A) 0.4 k/uL (0-1.0); Monocytes % (A) 4 %; Neutrophils % (A) 66 %; Platelet Count 264 k/uL (150-450); RBC 4.84 m/uL (3.80-5.40); RDW 12.4 % (11.5-15.5); WBC 10.6 k/uL (3.8-10.6)
[2020-06-05 20:00] LABS: Appearance,Urine Clear (Clear); Bilirubin,Urine Negative (Negative); Blood,Urine Negative (Negative); Color,Urine Colorless; Glucose,Urine (UA) Negative (Negative); Ketones,Urine Negative (Negative); Leukocyte Esterase,Urine Negative (Negative); Nitrite,Urine Negative (Negative); Protein,Urine Negative (Negative); Specific Gravity,Urine 1.002 (1.001-1.035); Urobilinogen,Urine <2.0 mg/dL (<2.0)
[2020-06-05 20:09] LABS: ALT 15 U/L (4-34); AST 22 U/L (14-36); African American GFR (CKD) >90 (>60 ml/min/1.73 sqM); Albumin 4.5 g/dL (3.5-5.0); Alkaline Phosphatase 63 U/L (38-126); Amylase 69 U/L (30-110); Anion Gap 7 mmol/L; Blood Urea Nitrogen 10 mg/dL (7-17); Calcium 9.4 mg/dL (8.4-10.2); Carbon Dioxide 24 mmol/L (22-30); Chloride 106 mmol/L (98-107); Glucose 95 mg/dL (74-99); Non-African American GFR(CKD) >90 (>60 ml/min/1.73 sqM); Sodium 137 mmol/L (137-145); Total Bilirubin 0.4 mg/dL (0.2-1.3); Total Protein 6.8 g/dL (6.3-8.2)
[2020-06-05] MEDS ORDERED: PANTOPRAZOLE 40 MG/10 ML VIAL IVP STA (20:43)
--- NOTE | 2020-06-05 20:51 | US ---
EXAMINATION TYPE: US abdomen limited DATE OF EXAM: 06/05/2020 COMPARISON: NONE CLINICAL HISTORY: RUQ pain. EXAM MEASUREMENTS: Liver Length: 11.4 cm Gallbladder Wall: 0 .1 cm CBD: 0.2 cm Right Kidney: 10.9 x 4.1 x 5.1 cm Pancreas: wnl Liver: wnl Gallbladder: wnl Evidence for sonographic Real's sign: no CBD: wnl Right Kidney: wnl IMPRESSION: Normal right upper quadrant ultrasound exam. No gallstones or dilated ducts.
--- NOTE | 2020-06-05 20:52 | XR ---
EXAMINATION TYPE: XR chest 2V DATE OF EXAM: 06/05/2020 COMPARISON: 10/24/2019 HISTORY: Lightheaded TECHNIQUE: 2 views FINDINGS: Heart and mediastinum are normal. Lungs are clear. Diaphragm is normal. Bony thorax appears normal. IMPRESSION: Normal chest. No change.
[2020-06-05 21:10] VITALS: BP 118/76; PULSE 87
== END 2020-06-05 22:11 | disposition home or self-care (01) ==
LOC: EC 19:18
DX: R10.11 Right upper quadrant pain (principal); R11.0 Nausea; Z79.899 Other long term (current) drug therapy
CPT/HCPCS: 36415; 93005; 85379; 83880; 80053; 82150; 83690; 84484; 85025; 81003; 81025; 71046; 76705; 99284; 96374; C9113

== ENCOUNTER 2020-06-22 18:14 | Emergency (ER) | payer OTHER ==
[2020-06-22 18:19] VITALS: RESP 18; TEMP 98.4
[2020-06-22] MEDS ORDERED: SODIUM CHLORIDE 0.9% 500 ML 500 ML IV STA (18:54)
[2020-06-22] MEDS ORDERED: ONDANSETRON 4 MG/2 ML VIAL IVP STA (18:54)
[2020-06-22] MEDS ORDERED: MORPHINE SULFATE 2 MG/ML SYRINGE IVP STA (18:54)
--- NOTE | 2020-06-22 19:19 | ED ---
Abdominal Pain HPI - General Chief Complaint: Abdominal Pain Stated Complaint: abd pain-revisit Time Seen by Provider: 06/22/20 18:26 Source: patient Mode of arrival: ambulatory Limitations: no limitations - History of Present Illness Initial Comments: 25-year-old female presenting today for chief complaint of abdominal pain. Pt states she was seen on the and prescribed protonix that seemed to take the pain away. She followed up with her PCP on the following Monday and the protonix dose was increased from 20mg to 40mg. She states that 2 days later and she attempted to contact her PCP. She states that since she has had upper abdominal pain, she states she feels like it is extending under her ribs b/l Denies SOB, denies chest pressure. Patient denies vomiting, occasional nausea. Denies diarrhea. Patient denies pain with a deep breath, hemoptysis, cancer, recent surgeries, leg swelling or calf pain, DVT/PE history, exogenous hormone use or . Patient appears well on arrival in no acute distress. VS within acceptable limits. She appears nontoxic, very pleasant! - Related Data Home Medications Medication Instructions Recorded Confirmed Ferrous Sulfate [Feosol] 325 mg PO DAILY 02/11/19 02/11/19 [id number] Acid 1 cap PO DAILY 02/11/19 02/11/19 [-U Capsule (formulary)] Previous Rx's Medication Instructions Recorded Pantoprazole Sodium [Protonix] 20 mg PO DAILY 7 Days #7 tablet. 06/05/20 Allergies Allergy/AdvReac Type Severity Reaction Status Date / Time No Known Allergies Allergy Verified 06/22/20 18:19 Review of Systems ROS Statement: Those systems with pertinent positive or pertinent negative responses have been documented in the HPI. ROS Other: All systems not noted in ROS Statement are negative. Past Medical History Past Medical History: Asthma Additional Past Medical History / Comment(s): debbi- cardiomyopathy History of Any Multi-Drug Resistant Organisms: None Reported Past Surgical History: Tonsillectomy Additional Past Surgical History / Comment(s): in 7th grade Past Anesthesia/Blood Transfusion Reactions: Postoperative Nausea & Vomiting (PONV) Past Psychological History: Anxiety, Depression Smoking Status: Never smoker Past Alcohol Use History: None Reported Past Drug Use History: None Reported - Past Family History Father Additional Family Medical History / Comment(s): Father is age 50 with history of alcoholism Mother Family Medical History: Osteoarthritis (OA) Additional Family Medical History / Comment(s): Mother is age 46 and has osteoarthritis and ADD Brother(s) Additional Family Medical History / Comment(s): Patient has 2 younger brothers with no major medical problems. General Exam - General Exam Comments Initial Comments: General: The patient is awake and alert, in no distress Eye: Pupils are equal, round and reactive to light, extra-ocular movements are intact. No nystagmus. There is normal conjunctiva bilaterally. No signs of icterus. Cardiovascular: There is a regular rate and rhythm. No murmur, rub or gallop is appreciated. Respiratory: Lungs are clear to auscultation, respirations are non-labored, b reath sounds are equal. No wheezes, stridor, rales, or rhonchi. Gastrointestinal: Soft, non-distended, epigastric pain to palpation, abdomen without masses or organomegaly noted. There is no rebound or guarding present. (-) [place] sign. Musculoskeletal: Normal ROM, no tenderness. Strength 5/5. Sensation intact. Radial pulses equal bilaterally 2+. Neurological: A&O x 3. CN II-XII intact grossly, There are no obvious motor or sensory deficits. Coordination appears grossly intact. Speech is normal. Skin: Skin is warm and dry and no rashes or lesions are noted. Psychiatric: Cooperative, appropriate mood & affect, normal judgment. Limitations: no limitations Course Vital Signs 06/22/20 06/22/20 06/22/20 18:15 19:38 21:00 Temperature 98.4 F 98.4 F Pulse Rate 95 86 92 Respiratory 18 18 18 Rate Blood Pressure 124/85 121/90 108/71 O2 Sat by Pulse 98 99 98 Oximetry Medical Decision Making - Medical Decision Making Labs stable. Dimer (-) Low risk PE. Patient CXR clear. CT Abdomen pelvic clear. Previous US (-). No chest pain. Patient has reproducible pain. Patient is to f/u with GI and PCP within the next week. Patient is agreeable to care plan. return parameters and differential diagnosis which includes H Pylori infection, PUD, biliary colic discussed. Case discussed with Dr. Rankin who is agreeable to discharge with f/u. - Lab Data Result diagrams: 06/22/20 19:15 06/22/20 19:15 Lab Results 06/22/20 06/22/20 06/22/20 Range/Units 19:15 19:15 19:15 WBC 8.8 (3.8-10.6) k/uL RBC 4.95 (3.80-5.40) m/uL Hgb 14.2 (11.4-16.0) gm/dL Hct 43.5 (34.0-46.0) % MCV 88.0 (80.0-100.0) fL MCH 28.7 (25.0-35.0) pg MCHC 32.6 (31.0-37.0) g/dL RDW 12.6 (11.5-15.5) % Plt Count 293 (150-450) k/uL Neutrophils % 70 % Lymphocytes % 22 % Monocytes % 4 % Eosinophils % 3 % Basophils % 1 % Neutrophils # 6.1 (1.3-7.7) k/uL Lymphocytes # 2.0 (1.0-4.8) k/uL Monocytes # 0.4 (0-1.0) k/uL Eosinophils # 0.2 (0-0.7) k/uL Basophils # 0.0 (0-0.2) k/uL D-Dimer (<0.60) mg/L FEU Sodium 138 (137-145) mmol/L Potassium 4.1 (3.5-5.1) mmol/L Chloride 106 (98-107) mmol/L Carbon Dioxide 27 (22-30) mmol/L Anion Gap 5 mmol/L BUN 7 (7-17) mg/dL Creatinine 0.71 (0.52-1.04) mg/dL Est GFR (CKD-EPI)AfAm >90 (>60 ml/min/1.73 sqM) Est GFR (CKD-EPI)NonAf >90 (>60 ml/min/1.73 sqM) Glucose 93 (74-99) mg/dL Plasma Lactic Acid [place] (0.7-2.0) mmol/L Calcium 9.5 (8.4-10.2) mg/dL Total Bilirubin 0.4 (0.2-1.3) mg/dL AST 21 (14-36) U/L ALT 15 (4-34) U/L Alkaline Phosphatase 64 (38-126) U/L Troponin I (0.000-0.034) ng/mL Total Protein 6.9 (6.3-8.2) g/dL Albumin 4.4 (3.5-5.0) g/dL Amylase 74 (30-110) U/L Lipase 195 (23-300) U/L Urine Color Colorless Urine Appearance Clear (Clear) Urine pH 7.0 (5.0-8.0) Ur Specific [place] 1.002 (1.001-1.035) Urine Protein Negative (Negative) Urine Glucose (UA) Negative (Negative) Urine Ketones Negative (Negative) Urine Blood Small H (Negative) Urine Nitrite Negative (Negative) Urine Bilirubin Negative (Negative) Urine Urobilinogen <2.0 (<2.0) mg/dL Ur Leukocyte Esterase Negative (Negative) Urine RBC 1 (0-5) /hpf Urine WBC <1 (0-5) /hpf Ur Squamous Epith Cells <1 (0-4) /hpf Urine Mucus Rare H (None) /hpf 06/22/20 06/22/20 06/22/20 Range/Units 19:15 19:15 19:15 WBC (3.8-10.6) k/uL RBC (3.80-5.40) m/uL Hgb (11.4-16.0) gm/dL Hct (34.0-46.0) % MCV (80.0-100.0) fL MCH (25.0-35.0) pg MCHC (31.0-37.0) g/dL RDW (11.5-15.5) % Plt Count (150-450) k/uL Neutrophils % % Lymphocytes % % Monocytes % % Eosinophils % % Basophils % % Neutrophils # (1.3-7.7) k/uL Lymphocytes # (1.0-4.8) k/uL Monocytes # (0-1.0) k/uL Eosinophils # (0-0.7) k/uL Basophils # (0-0.2) k/uL D-Dimer 0.34 (<0.60) mg/L FEU Sodium (137-145) mmol/L Potassium (3.5-5.1) mmol/L Chloride (98-107) mmol/L Carbon Dioxide (22-30) mmol/L Anion Gap mmol/L BUN (7-17) mg/dL Creatinine (0.52-1.04) mg/dL Est GFR (CKD-EPI)AfAm (>60 ml/min/1.73 sqM) Est GFR (CKD-EPI)NonAf (>60 ml/min/1.73 sqM) Glucose (74-99) mg/dL Plasma Lactic Acid [place] 0.8 (0.7-2.0) mmol/L Calcium (8.4-10.2) mg/dL Total Bilirubin (0.2-1.3) mg/dL AST (14-36) U/L ALT (4-34) U/L Alkaline Phosphatase (38-126) U/L Troponin I <0.012 (0.000-0.034) ng/mL Total Protein (6.3-8.2) g/dL Albumin (3.5-5.0) g/dL Amylase (30-110) U/L Lipase (23-300) U/L Urine Color Urine Appearance (Clear) Urine pH (5.0-8.0) Ur Specific [place] (1.001-1.035) Urine Protein (Negative) Urine Glucose (UA) (Negative) Urine Ketones (Negative) Urine Blood (Negative) Urine Nitrite (Negative) Urine Bilirubin (Negative) Urine Urobilinogen (<2.0) mg/dL Ur Leukocyte Esterase (Negative) Urine RBC (0-5) /hpf Urine WBC (0-5) /hpf Ur Squamous Epith Cells (0-4) /hpf Urine Mucus (None) /hpf Disposition Clinical Impression: Upper abdominal pain, Rib pain Disposition: HOME SELF-CARE Condition: Good Instructions (If sedation given, give patient instructions): Abdominal Pain (ED) Additional Instructions: Please use medication as discussed. Please follow-up with family doctor in the next 2 days. Please return to emergency room if the symptoms increase or worsen or for any other concerns. Is patient prescribed a controlled substance at d/c from ED?: No Referrals: Magnus Peng MD [Primary Care Provider] - 1-2 days Reina Nelson MD [STAFF PHYSICIAN] - 1-2 days Time of Disposition: 20:51
[2020-06-22 19:29] LABS: Appearance,Urine Clear (Clear); Bilirubin,Urine Negative (Negative); Blood,Urine Small (Negative); Color,Urine Colorless; Glucose,Urine (UA) Negative (Negative); Ketones,Urine Negative (Negative); Leukocyte Esterase,Urine Negative (Negative); Mucus,Urine Rare /hpf; Nitrite,Urine Negative (Negative); Protein,Urine Negative (Negative); RBC,Urine 1 /hpf (0-5); Specific Gravity,Urine 1.002 (1.001-1.035); Squamous Epithelial Cell,Urine <1 /hpf (0-4); Urobilinogen,Urine <2.0 mg/dL (<2.0); WBC,Urine <1 /hpf (0-5)
[2020-06-22 19:31] LABS: Basophils % (A) 1 %; Eosinophils # (A) 0.2 k/uL (0-0.7); Eosinophils % (A) 3 %; HCT 43.5 % (34.0-46.0); HGB 14.2 gm/dL (11.4-16.0); Lymphocytes % (A) 22 %; MCH 28.7 pg (25.0-35.0); MCHC 32.6 g/dL (31.0-37.0); Mean Platelet Volume 7.2; Monocytes # (A) 0.4 k/uL (0-1.0); Monocytes % (A) 4 %; Neutrophils # (A) 6.1 k/uL (1.3-7.7); Neutrophils % (A) 70 %; Platelet Count 293 k/uL (150-450); RBC 4.95 m/uL (3.80-5.40); RDW 12.6 % (11.5-15.5); WBC 8.8 k/uL (3.8-10.6)
[2020-06-22 19:37] LABS: ALT 15 U/L (4-34); AST 21 U/L (14-36); African American GFR (CKD) >90 (>60 ml/min/1.73 sqM); Albumin 4.4 g/dL (3.5-5.0); Alkaline Phosphatase 64 U/L (38-126); Amylase 74 U/L (30-110); Anion Gap 5 mmol/L; Blood Urea Nitrogen 7 mg/dL (7-17); Calcium 9.5 mg/dL (8.4-10.2); Carbon Dioxide 27 mmol/L (22-30); Chloride 106 mmol/L (98-107); Glucose 93 mg/dL (74-99); Non-African American GFR(CKD) >90 (>60 ml/min/1.73 sqM); Potassium 4.1 mmol/L (3.5-5.1); Sodium 138 mmol/L (137-145); Total Bilirubin 0.4 mg/dL (0.2-1.3); Total Protein 6.9 g/dL (6.3-8.2)
--- NOTE | 2020-06-22 20:09 | XR ---
EXAMINATION TYPE: XR chest 2V DATE OF EXAM: 06/22/2020 COMPARISON: 06/05/2020 HISTORY: Pain TECHNIQUE: FINDINGS: Heart and mediastinum are normal. Lungs are clear. Diaphragm is normal. Bony thorax appears normal. IMPRESSION: Normal chest. No change.
--- NOTE | 2020-06-22 20:44 | CT ---
EXAMINATION TYPE: CT abdomen pelvis w con DATE OF EXAM: 06/22/2020 COMPARISON: None HISTORY: Abdominal and rib pain. CT DLP: 856.2 mGycm Automated exposure control for dose reduction was used. CONTRAST: Performed with IV Contrast, patient injected with 100 mL of Isovue 300. Images obtained from the diaphragm to the floor the pelvis with IV contrast. Lung bases are clear. There is no pleural effusion. Heart size is normal. There is no pericardial eff usion. Liver spleen stomach pancreas gallbladder appear normal. Bile ducts are not dilated. There is no adrenal mass. Kidneys show satisfactory contrast opacification. There is no hydronephrosi s. Ureters are not dilated. There is no retroperitoneal adenopathy. Bladder distends smoothly. There is no inguinal hernia. There is no free fluid in the pelvis. Uterus is retroverted. Lumbar vertebra h ave normal spacing and alignment. Posterior elements are intact. Bony pelvis is intact. Hip joints ar e intact. There is no evidence of a pelvic mass. Appendix is medial and appears normal. There is no mesenteric edema. There is no ascites or free air. There is no bowel obstruction. There is mild wall thickening of the proximal jejunum. IMPRESSION: There is evidence of some mild jejunal wall thickening that could relate to gastroenteritis. Otherwis e negative exam.
[2020-06-22 21:01] VITALS: BP 108/71; PULSE 92
== END 2020-06-22 21:05 | disposition home or self-care (01) ==
LOC: EC 18:14
DX: R10.10 Upper abdominal pain, unspecified (principal); R07.81 Pleurodynia
CPT/HCPCS: 36415; 85379; 80053; 82150; 83605; 83690; 84484; 85025; 81001; 71046; 74177; 99284; 96374; 96361; J2405; Q9967

== ENCOUNTER 2020-08-05 22:17 | Emergency (ER) | payer OTHER ==
[2020-08-05] MEDS ORDERED: SODIUM CHLORIDE 0.9% 1,000 ML IV STA (22:35)
--- NOTE | 2020-08-05 22:44 | ED ---
Chest Pain HPI - General Chief Complaint: Chest Pain Stated Complaint: Chest Pain Time Seen by Provider: 08/05/20 22:30 Source: patient, RN notes reviewed, old records reviewed Mode of arrival: ambulatory Limitations: no limitations - History of Present Illness Initial Comments: This is a 25-year-old female DF for evaluation patient just some chest pain today chest pain to back jaw shoulder. Have asthma but no significant medical history takes no medications. CBC was diagnosed virus had a relatively uncomplicated coronavirus case course, no inpatient hospitalizations. No current fevers. Began today MD Complaint: chest pain -: hour(s) Onset: during rest, during exertion Pain Location: left chest Pain Radiation: LUE Severity: mild Severity scale (1-10): 3 Quality: tightness Consistency: intermittent Improves With: nothing Worsens With: nothing Context: recent illness (Positive coronavirus 3 weeks ago) Anginal Symptoms: dyspnea (History of asthma) Other Symptoms: palpitations Treatments Prior to Arrival: none - Related Data Home Medications Medication Instructions Recorded Confirmed Ferrous Sulfate [Feosol] 325 mg PO DAILY 02/11/19 02/11/19 Gcn-Ulhy-Tmwif Acid 1 cap PO DAILY 02/11/19 02/11/19 [-U Capsule (formulary)] Previous Rx's Medication Instructions Recorded Pantoprazole Sodium [Protonix] 20 mg PO DAILY 7 Days #7 tablet. 06/05/20 Allergies Allergy/AdvReac Type Severity Reaction Status Date / Time No Known Allergies Allergy Verified 08/05/20 22:20 Review of Systems ROS Statement: Those systems with pertinent positive or pertinent negative responses have been documented in the HPI. ROS Other: All systems not noted in ROS Statement are negative. EKG Findings - EKG Comments: EKG Findings:: EKG shows sinus rhythm of 90, MT 144 QRS 80 QTC 447 Past Medical History Past Medical History: Asthma Additional Past Medical History / Comment(s): debbi- cardiomyopathy History of Any Multi-Drug Resistant Organisms: None Reported Past Surgical History: Tonsillectomy Additional Past Surgical History / Comment(s): in 7th grade Past Anesthesia/Blood Transfusion Reactions: Postoperative Nausea & Vomiting (PONV) Past Psychological History: Anxiety, Depression Smoking Status: Never smoker Past Alcohol Use History: None Reported Past Drug Use History: None Reported - Past Family History Father Additional Family Medical History / Comment(s): Father is age 50 with history of alcoholism Mother Family Medical History: Osteoarthritis (OA) Additional Family Medical History / Comment(s): Mother is age 46 and has osteoarthritis and ADD Brother(s) Additional Family Medical History / Comment(s): Patient has 2 younger brothers with no major medical problems. General Exam Limitations: no limitations General appearance: alert, in no apparent distress Head exam: Present: atraumatic, normocephalic, normal inspection Eye exam: Present: normal appearance, PERRL, EOMI. Absent: scleral icterus, conjunctival injection, periorbital swelling ENT exam: Present: normal exam, mucous membranes moist Neck exam: Present: normal inspection. Absent: tenderness, meningismus, lymphadenopathy Respiratory exam: Present: normal lung sounds bilaterally. Absent: respiratory distress, wheezes, rales, rhonchi, stridor Cardiovascular Exam: Present: regular rate, normal rhythm, normal heart sounds. Absent: systolic murmur, diastolic murmur, rubs, gallop, clicks GI/Abdominal exam: Present: soft, normal bowel sounds. Absent: distended, tenderness, guarding, rebound, rigid Extremities exam: Present: normal inspection, full ROM, normal capillary refill. Absent: tenderness, pedal edema, joint swelling, calf tenderness Back exam: Present: normal inspection Neurological exam: Present: alert, oriented X3, CN II-XII intact Psychiatric exam: Present: normal affect, normal mood Skin exam: Present: warm, dry, intact, normal color. Absent: rash Course Vital Signs 08/05/20 08/06/20 08/06/20 22:18 00:01 00:12 Temperature 98.4 F Pulse Rate 78 92 80 Respiratory 18 16 Rate Blood Pressure 140/92 O2 Sat by Pulse 99 96 Oximetry 08/06/20 08/06/20 00:23 01:20 Temperature 98.5 F Pulse Rate 87 96 Respiratory 16 Rate Blood Pressure 110/73 O2 Sat by Pulse 98 Oximetry - Reevaluation(s) Reevaluation #1: Medical record is reviewed Patient has a significant improvement if not resolution of symptoms Patient is able to ambulate Patient informed results and questions have been answered patient is okay for discharge home Chest Pain MDM - MDM 25 female with history of asthma coming with chest pain likely pleurisy related. Patient coronavirus 3 weeks ago, no significant chest pain or shortness of breath currently , CT chest is negative and patient can be discharged home Disposition Clinical Impression: Chest pain, Atypical chest pain Disposition: HOME SELF-CARE Condition: Good Instructions (If sedation given, give patient instructions): Chest Pain (ED) Is patient prescribed a controlled substance at d/c from ED?: No Referrals: Magnus Peng MD [Primary Care Provider] - 1-2 days
--- NOTE | 2020-08-05 23:10 | XR ---
EXAMINATION TYPE: XR chest 2V DATE OF EXAM: 08/05/2020 COMPARISON: 06/22/2020 HISTORY: Chest pain TECHNIQUE: FINDINGS: Heart and mediastinum are normal. Lungs are clear. Diaphragm is normal. There are chest shar ds. IMPRESSION: Normal chest. No change.
[2020-08-05 23:21] LABS: Basophils # (A) 0.1 k/uL (0-0.2); Basophils % (A) 1 %; Eosinophils # (A) 0.4 k/uL (0-0.7); Eosinophils % (A) 4 %; HCT 39.5 % (34.0-46.0); HGB 13.3 gm/dL (11.4-16.0); Lymphocytes # (A) 2.7 k/uL (1.0-4.8); Lymphocytes % (A) 24 %; MCH 28.6 pg (25.0-35.0); MCHC 33.8 g/dL (31.0-37.0); MCV 84.7 fL (80.0-100.0); Mean Platelet Volume 6.8; Monocytes # (A) 0.4 k/uL (0-1.0); Monocytes % (A) 4 %; Neutrophils # (A) 7.4 k/uL (1.3-7.7); Neutrophils % (A) 66 %; Platelet Count 274 k/uL (150-450); RBC 4.66 m/uL (3.80-5.40); RDW 12.9 % (11.5-15.5); WBC 11.2 k/uL (3.8-10.6)
[2020-08-05] MEDS ORDERED: KETOROLAC 15 MG/ML 1 ML VIAL IM STA (23:22)
[2020-08-05] MEDS ORDERED: dexAMETHasone 4 MG TAB PO STA (23:22)
[2020-08-05] MEDS ORDERED: IPRATROPIUM-ALBUTEROL 3 ML NEB INHALATION STA (23:22)
[2020-08-05 23:34] LABS: ALT 36 U/L (4-34); African American GFR (CKD) >90 (>60 ml/min/1.73 sqM); Anion Gap 7 mmol/L; Blood Urea Nitrogen 12 mg/dL (7-17); Calcium 9.1 mg/dL (8.4-10.2); Carbon Dioxide 22 mmol/L (22-30); Chloride 108 mmol/L (98-107); Glucose 102 mg/dL (74-99); Lipase 275 U/L (23-300); Non-African American GFR(CKD) >90 (>60 ml/min/1.73 sqM); Sodium 137 mmol/L (137-145); Total Bilirubin 0.5 mg/dL (0.2-1.3)
[2020-08-05 23:38] LABS: INR 0.9 (<1.2); Prothrombin Time 9.5 sec (9.0-12.0)
[2020-08-06 00:02] VITALS: RESP 16
[2020-08-06 00:06] LABS: AST 32 U/L (14-36); Alkaline Phosphatase 49 U/L (38-126); Potassium 4.4 mmol/L (3.5-5.1); Total Protein 6.7 g/dL (6.3-8.2)
[2020-08-06 00:08] LABS: C Reactive Protein <5.0 mg/L (<10.0); LDH 749 U/L (313-618)
[2020-08-06 01:22] VITALS: BP 110/73; PULSE 96; TEMP 98.5
== END 2020-08-06 01:26 | disposition home or self-care (01) ==
LOC: EC 22:17
DX: R07.89 Other chest pain (principal); Z87.59 Personal history of other complications of pregnancy, childbirth and the puerperium
CPT/HCPCS: 36415; 94640; 93005; 83880; 80053; 83615; 83690; 83735; 84484; 85025; 85610; 85730; 86140; 71046; 99285; 96372; J8540; J1885

== ENCOUNTER 2023-09-27 11:04 | Inpatient (IN) | payer OTHER ==
--- NOTE | 2023-09-27 11:36 | ED ---
General Adult HPI - General Stated complaint: 6wks R side pain ELISABETH Time Seen by Provider: 09/27/23 11:35 Source: patient, RN notes reviewed - History of Present Illness Initial comments: Patient is a 28-year-old female presented to the ER with a chief complaint of right rib pain. Patient is 6 weeks . She states she was recently diagnosed with influenza B. She states that she has been coughing and is worried she broke something while coughing. She describes a burning pain in her right chest and mild shortness of breath. She is also reporting epigastric abdominal pain. - Related Data Home Medications Medication Instructions Recorded Confirmed L.acidoph,Paracasei, B.lactis 1 cap PO DAILY 09/27/23 09/27/23 [Probiotic] Metoclopramide [Reglan] 10 mg PO ACHS PRN 09/27/23 09/27/23 Multivitamins, Thera [Multivitamin 1 tab PO DAILY 09/27/23 09/27/23 (formulary)] Oseltamivir [Tamiflu] 75 mg PO Q12HR 09/27/23 09/27/23 Allergies Allergy/AdvReac Type Severity Reaction Status Date / Time No Known Allergies Allergy Verified 09/27/23 17:02 Review of Systems ROS Statement: Those systems with pertinent positive or pertinent negative responses have been documented in the HPI. ROS Other: All systems not noted in ROS Statement are negative. Past Medical History Past Medical History: Asthma Additional Past Medical History / Comment(s): debbi- cardiomyopathy History of Any Multi-Drug Resistant Organisms: None Reported Past Surgical History: Tonsillectomy Additional Past Surgical History / Comment(s): in 7th grade Past Anesthesia/Blood Transfusion Reactions: Postoperative Nausea & Vomiting (PONV) Past Psychological History: Anxiety, Depression Smoking Status: Never smoker Past Alcohol Use History: None Reported Past Drug Use History: None Reported - Past Family History Father Additional Family Medical History / Comment(s): Father is age 50 with history of alcoholism Mother Family Medical History: Osteoarthritis (OA) Additional Family Medical History / Comment(s): Mother is age 46 and has osteoarthritis and ADD Brother(s) Additional Family Medical History / Comment(s): Patient has 2 younger brothers with no major medical problems. General Exam - General Exam Comments Initial Comments: Visual Physical Exam General: Well-appearing, nontoxic, no acute distress. Head: Normocephalic, atraumatic Eyes: PERRLA, EOMI ENT: Airway patent Chest: Nonlabored breathing Skin: No visual rash, normal skin tone Neuro: Alert and oriented 3 Musculoskeletal: No gross abnormalities General appearance: alert, in no apparent distress Head exam: Present: atraumatic, normocephalic, normal inspection Eye exam: Present: normal appearance, PERRL, EOMI. Absent: scleral icterus, conjunctival injection, periorbital swelling ENT exam: Present: normal exam, mucous membranes moist Neck exam: Present: normal inspection. Absent: tenderness, meningismus, lymphadenopathy Respiratory exam: Present: decreased breath sounds (right lower lung). Absent: respiratory distress, wheezes, rales, rhonchi, stridor Cardiovascular Exam: Present: normal rhythm, tachycardia, normal heart sounds. Absent: systolic murmur, diastolic murmur, rubs, gallop, clicks GI/Abdominal exam: Present: soft, tenderness (epigastric) Neurological exam: Present: alert, oriented X3, CN II-XII intact Psychiatric exam: Present: normal affect, normal mood Skin exam: Present: warm, dry, intact, normal color. Absent: rash Course Vital Signs 09/27/23 09/27/23 09/27/23 12:00 14:35 16:07 Temperature 99.1 F Pulse Rate 116 H 121 H Respiratory 18 18 18 Rate Blood Pressure 108/71 82/52 O2 Sat by Pulse 99 95 Oximetry 09/27/23 09/27/23 09/27/23 18:31 19:59 21:10 Temperature 99.5 F 99.2 F Pulse Rate 120 H 128 H Respiratory 18 17 Rate Blood Pressure 97/63 O2 Sat by Pulse 96 95 Oximetry 09/27/23 21:20 Temperature Pulse Rate 128 H Respiratory 17 Rate Blood Pressure 106/64 O2 Sat by Pulse 95 Oximetry - Reevaluation(s) Reevaluation #1: 09/27/23 17:17 Spoke with Amaury Becerra from [facility] who accepted medical admission. Medical Decision Making - Medical Decision Making I performed the quick note portion of the exam. Electronically signed by Tiarra Bourne PA-C Was pt. sent in by a medical professional or institution (MIKEY Santamaria, PATTERN MARKING SUPERVISOR, urgent care, hospital, or shelter...) When possible be specific @ -No Did you speak to anyone other than the patient for history (EMS, parent, family, police, friend...)? What history was obtained from this source @ -No Did you review nursing and triage notes (agree or disagree)? Why? @ -I reviewed and agree with nursing and triage notes Were old charts reviewed (outside hosp., previous admission, EMS record, old EKG, old radiological studies, urgent care reports/EKG's, shelter records)? Report findings @ -No old charts were reviewed Differential Diagnosis (chest pain, altered mental status, abdominal pain women, abdominal pain men, vaginal bleeding, weakness, fever, dyspnea, syncope, headache, dizziness, GI bleed, back pain, seizure, CVA, palpatations, mental health, musculoskeletal)? @ -Differential Dyspnea: Coronary syndrome, arrhythmia, tamponade, asthma, COPD, pulmonary embolism, pneumonia, pneumothorax, pulmonary effusion, anaphylaxis, diabetic ketoacidosis, flailed chest, pulmonary contusion, diaphragmatic rupture, anemia, neuromuscular, this is not meant to be an all- inclusive list. EKG interpreted by me (3pts min.). @ -As above X-rays interpreted by me (1pt min.). @ -Chest x-ray shows moderate-sized infiltrates in the right mid to lower lung. CT interpreted by me (1pt min.). @ -None done U/S interpreted by me (1pt. min.). @ -None done What testing was considered but not performed or refused? (CT, X-rays, U/S, labs)? Why? @ -None What meds were considered but not given or refused? Why? @ -None Did you discuss the management of the patient with other professionals (professionals i.e. , PA, PATTERN MARKING SUPERVISOR, lab, RT, psych nurse, social media manager, teenage program director, teacher, welfare officer, pillowcase cutter)? Give summary @ -Yes, Amaury Becerra from [facility] who accepted medical admission. Was smoking cessation discussed for >3mins.? @ -No Was critical care preformed (if so, how long)? @ -No Were there social determinants of health that impacted care today? How? (Homelessness, low income, unemployed, alcoholism, drug addiction, transportation, low edu. Level, literacy, decrease access to med. care, retirement, rehab)? @ -No Was there de-escalation of care discussed even if they declined (Discuss DNR or withdrawal of care, Hospice)? DNR status @ -No What co-morbidities impacted this encounter? (DM, HTN, Smoking, COPD, CAD, Cancer, CVA, ARF, Chemo, Hep., AIDS, mental health diagnosis, sleep apnea, morbid obesity)? @ - Was patient admitted / discharged? Hospital course, mention meds given and route, prescriptions, significant lab abnormalities, going to OR and other pertinent info. @ -Admitted. Patient is a 28-year-old female presented to ER with chief complaint of right chest discomfort. Patient reports she is 6 weeks and was recently diagnosed with influenza B. Patient had a low-grade fever 99.2 and was tach ycardic around 120 upon arrival. Chest x-ray was obtained and showed moderate- sized pneumonic infiltrate in the right mid and lower lower lungs. Labs were obtained at that time due to size of pneumonia which showed a white count of 12.9, lactic acid 2.5, sodium 133, potassium 3.4. Urinalysis without signs of infection. EKG showed sinus tachycardia with no acute signs of infarct or ischemia. Due to patient's condition and admission was considered. I discussed lab and imaging results with patient. Patient was agreeable to admission. Patient received IV fluids, Tamiflu, Tylenol, 1 g of Rocephin in the ER. I discussed this case with Amaury Mace from [facility] who accepted medical adm ission. ID and OB will be on consult. Patient be admitted for further care and treatment. Undiagnosed new problem with uncertain prognosis? @ -No Drug Therapy requiring intensive monitoring for toxicity (Heparin, Nitro, Insulin, Cardizem)? @ -No Were any procedures done? @ -No Diagnosis/symptom? @ -Influenza B/pneumonia/ Acute, or Chronic, or Acute on Chronic? @ -Acute Uncomplicated (without systemic symptoms) or Complicated (systemic symptoms)? @ -Complicated Side effects of treatment? @ -No Exacerbation, Progression, or Severe Exacerbation? @ -No Poses a threat to life or bodily function? How? (Chest pain, USA, MA, pneumonia, PE, COPD, DKA, ARF, appy, cholecystitis, CVA, Diverticulitis, Homicidal, Suicidal, threat to staff... and all critical care pts) @ -Yes pneumonia can lead to sepsis which is life-threatening. - Lab Data Result diagrams: 09/27/23 13:55 09/27/23 13:55 Lab Results 09/27/23 09/27/23 09/27/23 Range/Units 13:55 13:55 13:55 WBC 12.9 H (3.8-10.6) k/uL RBC 4.19 (3.80-5.40) m/uL Hgb 12.1 (11.4-16.0) gm/dL Hct 35.6 (34.0-46.0) % MCV 84.9 (80.0-100.0) fL MCH 28.9 (25.0-35.0) pg MCHC 34.0 (31.0-37.0) g/dL RDW 13.4 (11.5-15.5) % Plt Count 192 (150-450) k/uL MPV 7.8 Sodium 133 L (137-145) mmol/L Potassium 3.4 L (3.5-5.1) mmol/L Chloride 99 (98-107) mmol/L Carbon Dioxide 24 (22-30) mmol/L Anion Gap 10 mmol/L BUN 7 (7-17) mg/dL Creatinine 0.51 L (0.52-1.04) mg/dL Est GFR (CKD-EPI)AfAm >90 (>60 ml/min/1.73 sqM) Est GFR (CKD-EPI)NonAf >90 (>60 ml/min/1.73 sqM) Glucose 115 H (74-99) mg/dL Lactic Ac Sepsis Rflx Plasma Lactic Acid Maicol 2.5 H* (0.7-2.0) mmol/L Calcium 8.6 (8.4-10.2) mg/dL Total Bilirubin 0.4 (0.2-1.3) mg/dL AST 34 (14-36) U/L ALT 38 H (4-34) U/L Alkaline Phosphatase 47 (38-126) U/L Total Protein 6.2 L (6.3-8.2) g/dL Albumin 3.7 (3.5-5.0) g/dL Urine Color Urine Appearance (Clear) Urine pH (5.0-8.0) Ur Specific [place] (1.001-1.035) Urine Protein (Negative) Urine Glucose (UA) (Negative) Urine Ketones (Negative) Urine Blood (Negative) Urine Nitrite (Negative) Urine Bilirubin (Negative) Urine Urobilinogen (<2.0) mg/dL Ur Leukocyte Esterase (Negative) Urine RBC (0-5) /hpf Urine WBC (0-5) /hpf Ur Squamous Epith Cells (0-4) /hpf Urine Bacteria (None) /hpf Urine Mucus (None) /hpf 09/27/23 09/27/23 09/27/23 Range/Units 14:18 14:38 16:28 WBC (3.8-10.6) k/uL RBC (3.80-5.40) m/uL Hgb (11.4-16.0) gm/dL Hct (34.0-46.0) % MCV (80.0-100.0) fL MCH (25.0-35.0) pg MCHC (31.0-37.0) g/dL RDW (11.5-15.5) % Plt Count (150-450) k/uL MPV Sodium (137-145) mmol/L Potassium (3.5-5.1) mmol/L Chloride (98-107) mmol/L Carbon Dioxide (22-30) mmol/L Anion Gap mmol/L BUN (7-17) mg/dL Creatinine (0.52-1.04) mg/dL Est GFR (CKD-EPI)AfAm (>60 ml/min/1.73 sqM) Est GFR (CKD-EPI)NonAf (>60 ml/min/1.73 sqM) Glucose (74-99) mg/dL Lactic Ac Sepsis Rflx Y Plasma Lactic Acid Maicol 1.3 (0.7-2.0) mmol/L Calcium (8.4-10.2) mg/dL Total Bilirubin (0.2-1.3) mg/dL AST (14-36) U/L ALT (4-34) U/L Alkaline Phosphatase (38-126) U/L Total Protein (6.3-8.2) g/dL Albumin (3.5-5.0) g/dL Urine Color Yellow Urine Appearance Cloudy H (Clear) Urine pH 5.5 (5.0-8.0) Ur Specific [place] 1.016 (1.001-1.035) Urine Protein Trace H (Negative) Urine Glucose (UA) Negative (Negative) Urine Ketones Negative (Negative) Urine Blood Negative (Negative) Urine Nitrite Negative (Negative) Urine Bilirubin Negative (Negative) Urine Urobilinogen <2.0 (<2.0) mg/dL Ur Leukocyte Esterase Negative (Negative) Urine RBC 1 (0-5) /hpf Urine WBC 4 (0-5) /hpf Ur Squamous Epith Cells 4 (0-4) /hpf Urine Bacteria Moderate H (None) /hpf Urine Mucus Few H (None) /hpf - EKG Data -: EKG Interpreted by Me EKG Comments: EKG taken at 13: 46 shows sinus tachycardia with inverted T wavs in lead III. Ventricular rate 119, NV interval 137, QRS duration 78, QT/QTc 279/350. - Radiology Data Radiology results: report reviewed, image reviewed Disposition Clinical Impression: Pneumonia, Influenza, Disposition: ADMITTED IP TO THIS HOSP Condition: Fair Time of Disposition: 11:30
--- NOTE | 2023-09-27 12:44 | XR ---
EXAMINATION TYPE: XR chest 1V DATE OF EXAM: 09/27/2023 COMPARISON: 08/05/2020 HISTORY: Chest pain TECHNIQUE: Single frontal view of the chest is obtained. FINDINGS: Moderate-sized pneumonic infiltrate right mid and right lower lung zone. Air bronchograms seen. The cardiac silhouette size is within normal limits. The osseous structures are intact. IMPRESSION: 1. Moderate-sized pneumonic infiltrate right mid and right lower lung zone. Air bronchograms seen.
[2023-09-27 13:58] LABS: HCT 35.6 % (34.0-46.0); HGB 12.1 gm/dL (11.4-16.0); MCH 28.9 pg (25.0-35.0); MCV 84.9 fL (80.0-100.0); Mean Platelet Volume 7.8; Platelet Count 192 k/uL (150-450); RBC 4.19 m/uL (3.80-5.40); RDW 13.4 % (11.5-15.5); WBC 12.9 k/uL (3.8-10.6)
[2023-09-27 14:17] LABS: ALT 38 U/L (4-34); AST 34 U/L (14-36); African American GFR (CKD) >90 (>60 ml/min/1.73 sqM); Albumin 3.7 g/dL (3.5-5.0); Alkaline Phosphatase 47 U/L (38-126); Anion Gap 10 mmol/L; Blood Urea Nitrogen 7 mg/dL (7-17); Calcium 8.6 mg/dL (8.4-10.2); Carbon Dioxide 24 mmol/L (22-30); Chloride 99 mmol/L (98-107); Glucose 115 mg/dL (74-99); Non-African American GFR(CKD) >90 (>60 ml/min/1.73 sqM); Potassium 3.4 mmol/L (3.5-5.1); Sodium 133 mmol/L (137-145); Total Bilirubin 0.4 mg/dL (0.2-1.3); Total Protein 6.2 g/dL (6.3-8.2)
[2023-09-27] MEDS ORDERED: SODIUM CHLORIDE 0.9% 1,000 ML IV STA (14:34)
[2023-09-27] MEDS ORDERED: ACETAMINOPHEN TAB 325 MG TAB PO STA (14:42)
[2023-09-27 14:51] LABS: Appearance,Urine Cloudy (Clear); Bacteria,Urine Moderate /hpf; Bilirubin,Urine Negative (Negative); Blood,Urine Negative (Negative); Color,Urine Yellow; Glucose,Urine (UA) Negative (Negative); Ketones,Urine Negative (Negative); Leukocyte Esterase,Urine Negative (Negative); Mucus,Urine Few /hpf; Nitrite,Urine Negative (Negative); PH, Urine 5.5 (5.0-8.0); Protein,Urine Trace (Negative); RBC,Urine 1 /hpf (0-5); Specific Gravity,Urine 1.016 (1.001-1.035); Squamous Epithelial Cell,Urine 4 /hpf (0-4); Urobilinogen,Urine <2.0 mg/dL (<2.0); WBC,Urine 4 /hpf (0-5)
[2023-09-27] MEDS ORDERED: OSELTAMIVIR 75 MG CAP PO STA (14:54)
[2023-09-27] MEDS ORDERED: NALOXONE 0.4 MG/ML 1 ML VIAL IV PRN (17:18)
[2023-09-27] MEDS ORDERED: METOCLOPRAMIDE 5 MG/ML 2 ML VIAL IVP PRN (17:29)
[2023-09-27] MEDS ORDERED: ACETAMINOPHEN TAB 325 MG TAB PO PRN (17:29)
[2023-09-27] MEDS: SODIUM CHLORIDE 0.9% 1,000 ML IV SCH (17:44)
[2023-09-27] MEDS: ACETAMINOPHEN TAB 500 MG TAB PO PRN (23:30)
[2023-09-28] MEDS: SODIUM CHLORIDE 0.9% 1,000 ML IV SCH ×3 (03:37→20:03)
[2023-09-28] MEDS: ACETAMINOPHEN TAB 500 MG TAB PO PRN ×2 (08:44→20:02)
[2023-09-28] MEDS ORDERED: AZITHROMYCIN 500 MG TAB PO STA (10:44)
[2023-09-28] MEDS: OSELTAMIVIR 75 MG CAP PO SCH ×2 (11:21→20:00)
--- NOTE | 2023-09-28 18:29 | P.HPIM ---
History of Present Illness H&P Date: 09/28/23 This is a pleasant 28-year-old female who presented to the emergency department with right-sided rib pain with coughing and having fevers and was recently diagnosed with influenza B infection. Patient reports to having some increased coughing and not bringing up much sputum. Patient also noted to be 6 weeks and reports currently does not have a primary care provider at this time. Patient does have a past medical history of asthma, peripartum cardiomyopathy, anxiety/depression. Patient reports she never smoked denies any alcohol use and denies any illicit drug use. Patient reports she is looking for a primary care provider in the outpatient setting. Patient has not received o bstetric care as of yet. Chest x-ray in the ER showed moderate size pneumonic infiltrate on the right mid and lower lobe as well as air bronchograms noted. Patient was given a dose of Tamiflu in the ER as well as ceftriaxone. Patient was admitted for pneumonia and acute influenza infection. Infectious disease along with obstetrics consulted and pending. REVIEW OF SYSTEMS: CONSTITUTIONAL: Reports of reports increased fever, no malaise, reports of fatigue. HEENT: No recent visual problems or hearing problems. Denied any sore throat. CARDIOVASCULAR: No chest pain, reports right-sided chest wall pain and rib pain, orthopnea, PND, no palpitations, no syncope. PULMONARY: Reports of shortness of breath with cough, no hemoptysis. GASTROINTESTINAL: No diarrhea, no nausea, no vomiting, no abdominal pain. NEUROLOGICAL: Reports mild headaches, no weakness, no numbness. HEMATOLOGICAL: Denies any bleeding or petechiae. GENITOURINARY: Denies any burning micturition, frequency, or urgency. MUSCULOSKELETAL/RHEUMATOLOGICAL: Denies any joint pain, swelling, or any muscle pain. Reports of generalized bodyaches ENDOCRINE: Denies any polyuria or polydipsia. The rest of the 14-point review of systems is negative. PHYSICAL EXAMINATION: GENERAL: The patient is alert and oriented x3, appears fatigued. Well developed, well nourished. HEENT: Pupils are round and equally reacting to light. EOMI. No scleral icterus. No conjunctival pallor. Normocephalic, atraumatic. No pharyngeal erythema. No thyromegaly. CARDIOVASCULAR: S1 and S2 present. No murmurs, rubs, or gallops. PULMONARY: Diminished breath sounds bilaterally otherwise chest is clear to auscultation, no significant wheezing or crackles. ABDOMEN: Soft, nontender, nondistended, normoactive bowel sounds. No palpable organomegaly. MUSCULOSKELETAL: No joint swelling or deformity. EXTREMITIES: No cyanosis, clubbing, or pedal edema. NEUROLOGICAL: Gross neurological examination did not reveal any focal deficits. SKIN: No rashes. Assessment: Acute influenza B infection 6 weeks gestation Right mid and lower lung pneumonia, community-acquired History of asthma, not in exacerbation Leukocytosis, secondary to pneumonia Lactic acidosis secondary to pneumonia, improved recently History of peripartum cardiomyopathy after her last 4 years ago History of Anxiety/Depression GI prophylaxis DVT prophylaxis Full code Plan: Patient appears clinically dry and will continue with gentle IV hydration and follow-up on repeat labs Replace electrolytes per protocol including potassium Patient was started on ceftriaxone with concerns of right side pneumonia with infectious disease on consult, procalcitonin ordered along with cultures Patient also with acute influenza B infection started on Tamiflu and will co ntinue Obstetrics consulted and pending as patient is 6 weeks gestation Encouraged increase activity as tolerated Will add incentive spirometer and encourage at least 10 times every hour while awake Patient is slightly tachycardic and recommend continued telemetry monitoring The impression and plan of care has been dictated by May Billingsley, Nurse Practitioner as directed. Dr. Brett MD I have performed a history and examination and MDM of this patient, discussed the same with the dictator, and agree with the dictator's assessment and plan as written ,documented as a scribe. Based on total visit time, I have performed more than 50% of the visit. Past Medical History Past Medical History: Asthma Additional Past Medical History / Comment(s): debbi- cardiomyopathy History of Any Multi-Drug Resistant Organisms: None Reported Past Surgical History: Tonsillectomy Additional Past Surgical History / Comment(s): in 7th grade Past Anesthesia/Blood Transfusion Reactions: Postoperative Nausea & Vomiting (PONV) Past Psychological History: Anxiety, Depression Smoking Status: Never smoker Past Alcohol Use History: None Reported Additional Past Alcohol Use History / Comment(s): Patient states she smokes one pack of cigarettes every 2-3 days and started when she was 16 years of age. She did quit smoking 3 weeks ago. She denies any street drug use or marijuana use. She denies any alcohol use. She is currently living with her father and brothers. Patient does work full-time in a factory setting and babysits. She takes care of her 2 horses, 3 dogs and 1 cat. Past Drug Use History: None Reported - Past Family History Father Additional Family Medical History / Comment(s): Father is age 50 with history of alcoholism Mother Family Medical History: Osteoarthritis (OA) Additional Family Medical History / Comment(s): Mother is age 46 and has osteoarthritis and ADD Brother(s) Additional Family Medical History / Comment(s): Patient has 2 younger brothers with no major medical problems. Medications and Allergies Home Medications Medication Instructions Recorded Confirmed Type L.acidoph,Paracasei, B.lactis 1 cap PO DAILY 09/27/23 09/27/23 History [Probiotic] Metoclopramide [Reglan] 10 mg PO ACHS PRN 09/27/23 09/27/23 History Multivitamins, Thera [Multivitamin 1 tab PO DAILY 09/27/23 09/27/23 History (formulary)] Oseltamivir [Tamiflu] 75 mg PO Q12HR 09/27/23 09/27/23 History Allergies Allergy/AdvReac Type Severity Reaction Status Date / Time No Known Allergies Allergy Verified 09/27/23 17:02 Physical Exam Vitals: Vital Signs Temp Pulse Pulse Resp BP BP Pulse Ox 09/28/23 08:44 16 09/28/23 07:18 99.4 F 117 H 87/59 95 09/28/23 02:17 99.4 F 113 H 16 98/55 94 L 09/28/23 01:06 99.6 F 09/28/23 00:28 102.4 F H 09/27/23 23:06 102.7 F H 118 H 16 99/57 95 09/27/23 21:20 128 H 17 106/64 95 09/27/23 21:10 128 H 17 95 09/27/23 19:59 99.2 F 09/27/23 18:31 99.5 F 120 H 18 97/63 96 09/27/23 16:07 121 H 18 82/52 95 09/27/23 14:35 18 09/27/23 12:00 99.1 F 116 H 18 108/71 99 Intake and Output 09/27/23 09/28/23 09/28/23 22:59 06:59 14:59 Intake Total 118 Balance 118 Intake: Oral 118 Other: Voiding Method Toilet # Voids 3 Weight 56.699 kg Results CBC & Chem 7: 09/27/23 13:55 09/27/23 13:55 Labs: Abnormal Lab Results - Last 24 Hours (Table) 09/27/23 09/27/23 09/27/23 Range/Units 13:55 13:55 13:55 WBC 12.9 H (3.8-10.6) k/uL Sodium 133 L (137-145) mmol/L Potassium 3.4 L (3.5-5.1) mmol/L Creatinine 0.51 L (0.52-1.04) mg/dL Glucose 115 H (74-99) mg/dL Plasma Lactic Acid Maicol 2.5 H* (0.7-2.0) mmol/L ALT 38 H (4-34) U/L Total Protein 6.2 L (6.3-8.2) g/dL Urine Appearance (Clear) Urine Protein (Negative) Urine Bacteria (None) /hpf Urine Mucus (None) /hpf 09/27/23 Range/Units 14:38 WBC (3.8-10.6) k/uL Sodium (137-145) mmol/L Potassium (3.5-5.1) mmol/L Creatinine (0.52-1.04) mg/dL Glucose (74-99) mg/dL Plasma Lactic Acid Maicol (0.7-2.0) mmol/L ALT (4-34) U/L Total Protein (6.3-8.2) g/dL Urine Appearance Cloudy H (Clear) Urine Protein Trace H (Negative) Urine Bacteria Moderate H (None) /hpf Urine Mucus Few H (None) /hpf Thrombosis Risk Factor Assmnt - DVT/VTE Prophylaxis DVT/VTE Prophylaxis: Mechanical Prophylaxis ordered - Choose All That Apply Any of the Below Risk Factors Present?: Yes Each Factor Represents 1 point: or , Serious lung disease incl. pneumonia (< 1month) Other Risk Factors: No Other congenital or acquired thrombophilia - If yes, enter type in comment: No Thrombosis Risk Factor Assessment Total Risk Factor Score: 2 Thrombosis Risk Factor Assessment Level: Low Risk Assessment and Plan Time with Patient: Greater than 30
--- NOTE | 2023-09-28 20:40 | P.OBCN ---
History of Present Illness Consult date: 09/28/23 Requesting physician: Jessa Schafer Reason for consult: early problem Chief complaint: Pneumonia History of present illness: This is a 28-year-old female 4 para 3 who presented to the emergency room with complaints of coughing, chest pain, fever, body aches, and vomiting that began a couple days prior to admission. She states she did go to [facility] emergency room 2 days prior to admission here due to coughing up blood but was told nothing was wrong. When symptoms worsened and she began having some shortness of breath, she presented to the emergency room here. She did find out she was approximately 4 to 5 days ago and did have an ultrasound at [facility] emergency room. Per patient, she was told that she was 5 weeks 6 days but they could not see a heartbeat yet. She was given Reglan for nausea and vomiting at that time. She is currently positive for influenza B and was diagnosed with pneumonia on chest x-ray. In addition s he has undergone a sepsis workup including blood cultures. She is currently on Rocephin and Tamiflu. She has not seen an radiology nurse yet for this . She did see Dr. Eckert with all of her previous pregnancies but he is no longer practicing obstetrics. Her third was complicated by peripartum cardiomyopathy diagnosed 2 weeks after delivery and she was followed by her extract wringer for about 2 years after delivery. She was released at that time. Obstetrical history: G4, P3. Review of Systems Constitutional: Reports chills, Reports fever, Reports malaise Eyes: denies blurred vision, denies pain Ears, nose, mouth and throat: Reports headache Cardiovascular: Reports chest pain, Reports shortness of breath Respiratory: Reports congestion, Reports cough with sputum Gastrointestinal: Reports nausea, Reports vomiting, Denies abdominal pain Genitourinary: Reports , Denies abnormal vaginal bleeding Musculoskeletal: Denies myalgias Integumentary: Denies pruritus, Denies rash Neurological: Reports weakness, Denies numbness Psychiatric: Reports anxiety, Reports depression Endocrine: Reports fatigue Past Medical History Past Medical History: Asthma Additional Past Medical History / Comment(s): debbi- cardiomyopathy History of Any Multi-Drug Resistant Organisms: None Reported Past Surgical History: Tonsillectomy Additional Past Surgical History / Comment(s): in 7th grade Past Anesthesia/Blood Transfusion Reactions: Postoperative Nausea & Vomiting (PONV) Past Psychological History: Anxiety, Depression Smoking Status: Former smoker Past Alcohol Use History: None Reported Additional Past Alcohol Use History / Comment(s): Patient states she smokes one pack of cigarettes every 2-3 days and started when she was 16 years of age. She did quit smoking 3 weeks ago. She denies any street drug use or marijuana use. She denies any alcohol use. She is currently living with her father and brothers. Patient does work full-time in a factory setting and babysits. She takes care of her 2 horses, 3 dogs and 1 cat. Past Drug Use History: None Reported - Past Family History Father Additional Family Medical History / Comment(s): Father is age 50 with history of alcoholism Mother Family Medical History: Osteoarthritis (OA) Additional Family Medical History / Comment(s): Mother is age 46 and has osteoarthritis and ADD Brother(s) Additional Family Medical History / Comment(s): Patient has 2 younger brothers w ith no major medical problems. Medications and Allergies Home Medications Medication Instructions Recorded Confirmed Type L.acidoph,Paracasei, B.lactis 1 cap PO DAILY 09/27/23 09/27/23 History [Probiotic] Metoclopramide [Reglan] 10 mg PO ACHS PRN 09/27/23 09/27/23 History Multivitamins, Thera [Multivitamin 1 tab PO DAILY 09/27/23 09/27/23 History (formulary)] Oseltamivir [Tamiflu] 75 mg PO Q12HR 09/27/23 09/27/23 History Allergies Allergy/AdvReac Type Severity Reaction Status Date / Time No Known Allergies Allergy Verified 09/27/23 17:02 Exam Osteopathic Statement: *. No significant issues noted on an osteopathic structural exam other than those noted in the History and Physical/Consult. Vital Signs Temp Pulse Pulse Resp BP BP Pulse Ox 09/28/23 13:40 98.5 F 104 H 14 100/66 99 09/28/23 08:44 16 09/28/23 07:18 99.4 F 117 H 87/59 95 09/28/23 02:17 99.4 F 113 H 16 98/55 94 L 09/28/23 01:06 99.6 F 09/28/23 00:28 102.4 F H 09/27/23 23:06 102.7 F H 118 H 16 99/57 95 09/27/23 21:20 128 H 17 106/64 95 09/27/23 21:10 128 H 17 95 Intake and Output 09/28/23 09/28/23 09/28/23 06:59 14:59 22:59 Intake Total 118 Balance 118 Intake: Oral 118 Other: Voiding Method Toilet # Voids 3 1 General: Well-developed well-nourished female in no acute distress Lungs: Clear to auscultation bilaterally with no wheezing auscultated Abdominal and pelvic exam were not performed Results Result Diagrams: 09/27/23 13:55 09/27/23 13:55 Microbiology - Last 24 Hours (Table) 09/27/23 14:45 Blood Culture Gram Stain - Preliminary Blood 09/27/23 14:50 Blood Culture Gram Stain - Preliminary Blood Assessment and Plan (1) Incidental Current Visit: Yes Status: Acute Code(s): Z33.1 - STATE, INCIDENTAL SNOMED Code(s): 48402220 (2) Influenza Current Visit: Yes Status: Acute Code(s): J11.1 - FLU DUE TO UNIDENTIFIED INFLUENZA VIRUS W OTH RESP MANIFEST SNOMED Code(s): 1165442 (3) Pneumonia Current Visit: Yes Status: Acute Code(s): J18.9 - PNEUMONIA, UNSPECIFIED ORGANISM SNOMED Code(s): 459646834 Plan: Patient was advised that the antibiotics and antivirals that she is currently on are safe in . She may use Tylenol as needed for pain. I would sugge st starting a vitamin as soon as she is able to tolerate it. She is advised that she should establish care with an radiology nurse after she is released from the hospital. She is aware that our office is closing on November 16 and that she can try to get care with either Dr. Hewitt or a [facility] [employer] physician or she may try other obstetricians out of the area. All of her questions were answered. No further obstetrical intervention is needed. If there are any further questions, please do not hesitate to call.
--- NOTE | 2023-09-28 22:23 | P.CONS ---
History of Present Illness - Reason for Consult Consult date: 09/28/23 - History of Present Illness Patient is a 28-year-old female with a past medical history significant for asthma patient started getting sick about 3 days ago has been complaining of more generalized bodyaches not feeling well did have some URI and a cough for the patient was evaluated at [facility] ER patient was diagnosed with influenza B and also found to be 6 weeks patient was started on Tamiflu with the patient has taken for about 2 days however the patient notes having increasing pain to the right lower chest area describing it to be sharp moderate in intensity she also have a cough bring up some purulent sputum no hemoptysis nausea but no vomiting no abdominal pain or any diarrhea with the symptoms the patient present to the hospital on arrival to the ER the patient did have a low-grade fever however last night she spike a fever of 102.7 degrees for night patient was tachycardic mildly hypotensive but not hypoxic or need for supplemental oxygen patient did have white count of 12.9 creatinine 0.51 lactic acid was 2.5 urine was negative blood cultures obtained currently pending p atient did have a chest x-ray moderate-sized pneumonic infiltrate right mid and right lower lungs patient received a dose of Rocephin and Tamiflu in the ER subsequently has been admitted to hospital infectious disease was consulted for further management of antibiotic therapy Past Medical History Past Medical History: Asthma Additional Past Medical History / Comment(s): debbi- cardiomyopathy History of Any Multi-Drug Resistant Organisms: None Reported Past Surgical History: Tonsillectomy Additional Past Surgical History / Comment(s): in 7th grade Past Anesthesia/Blood Transfusion Reactions: Postoperative Nausea & Vomiting (PONV) Past Psychological History: Anxiety, Depression Smoking Status: Never smoker Past Alcohol Use History: None Reported Additional Past Alcohol Use History / Comment(s): Patient states she smokes one pack of cigarettes every 2-3 days and started when she was 16 years of age. She did quit smoking 3 weeks ago. She denies any street drug use or marijuana use. She denies any alcohol use. She is currently living with her father and brothers. Patient does work full-time in a factory setting and babysits. She takes care of her 2 horses, 3 dogs and 1 cat. Past Drug Use History: None Reported - Past Family History Father Additional Family Medical History / Comment(s): Father is age 50 with history of alcoholism Mother Family Medical History: Osteoarthritis (OA) Additional Family Medical History / Comment(s): Mother is age 46 and has osteoarthritis and ADD Brother(s) Additional Family Medical History / Comment(s): Patient has 2 younger brothers with no major medical problems. Medications and Allergies Home Medications Medication Instructions Recorded Confirmed Type L.acidoph,Paracasei, B.lactis 1 cap PO DAILY 09/27/23 09/27/23 History [Probiotic] Metoclopramide [Reglan] 10 mg PO ACHS PRN 09/27/23 09/27/23 History Multivitamins, Thera [Multivitamin 1 tab PO DAILY 09/27/23 09/27/23 History (formulary)] Oseltamivir [Tamiflu] 75 mg PO Q12HR 09/27/23 09/27/23 History Allergies Allergy/AdvReac Type Severity Reaction Status Date / Time No Known Allergies Allergy Verified 09/27/23 17:02 Physical Exam Vitals: Vital Signs Temp Pulse Pulse Resp BP BP Pulse Ox 09/28/23 08:44 16 09/28/23 07:18 99.4 F 117 H 87/59 95 09/28/23 02:17 99.4 F 113 H 16 98/55 94 L 09/28/23 01:06 99.6 F 09/28/23 00:28 102.4 F H 09/27/23 23:06 102.7 F H 118 H 16 99/57 95 09/27/23 21:20 128 H 17 106/64 95 09/27/23 21:10 128 H 17 95 09/27/23 19:59 99.2 F 09/27/23 18:31 99.5 F 120 H 18 97/63 96 09/27/23 16:07 121 H 18 82/52 95 09/27/23 14:35 18 09/27/23 12:00 99.1 F 116 H 18 108/71 99 Intake and Output 09/27/23 09/28/23 09/28/23 22:59 06:59 14:59 Intake Total 118 Balance 118 Intake: Oral 118 Other: Voiding Method Toilet # Voids 3 Weight 56.699 kg Results CBC & Chem 7: 09/27/23 13:55 09/27/23 13:55 Labs: Abnormal Lab Results - Last 24 Hours (Table) 09/27/23 09/27/23 09/27/23 Range/Units 13:55 13:55 13:55 WBC 12.9 H (3.8-10.6) k/uL Sodium 133 L (137-145) mmol/L Potassium 3.4 L (3.5-5.1) mmol/L Creatinine 0.51 L (0.52-1.04) mg/dL Glucose 115 H (74-99) mg/dL Plasma Lactic Acid Maicol 2.5 H* (0.7-2.0) mmol/L ALT 38 H (4-34) U/L Total Protein 6.2 L (6.3-8.2) g/dL Urine Appearance (Clear) Urine Protein (Negative) Urine Bacteria (None) /hpf Urine Mucus (None) /hpf 09/27/23 Range/Units 14:38 WBC (3.8-10.6) k/uL Sodium (137-145) mmol/L Potassium (3.5-5.1) mmol/L Creatinine (0.52-1.04) mg/dL Glucose (74-99) mg/dL Plasma Lactic Acid Maicol (0.7-2.0) mmol/L ALT (4-34) U/L Total Protein (6.3-8.2) g/dL Urine Appearance Cloudy H (Clear) Urine Protein Trace H (Negative) Urine Bacteria Moderate H (None) /hpf Urine Mucus Few H (None) /hpf Assessment and Plan Plan: 1patient presented to hospital with sepsis in this patient who did have a fever tachycardia elevated white count elevated lactic acid sources have right-sided pneumonia likely community-acquired in this patient who was recently diagnosed with the influenza B and has taken Tamiflu for about 2 days 2-we will try to obtain a sputum for Gram stain and culture check a CRP and a procalcitonin 3-patient started on Tamiflu to finish a 5-day course of therapy 4-we will also start Rocephin 2 g daily while waiting for the culture to finali ze Question concern were answered We will follow on clinical condition and cultures to further adjust medication if needed Thank you for this consultation we will follow the patient along with you Dictation was produced using [employer] dictation software. please excuse any grammatical, word or spelling errors. Time with Patient: Greater than 30
[2023-09-29] MEDS: OSELTAMIVIR 75 MG CAP PO SCH ×2 (08:03→21:35)
[2023-09-29] MEDS: ACETAMINOPHEN TAB 500 MG TAB PO PRN ×3 (08:04→21:34)
[2023-09-29 08:48] LABS: Basophils # (A) 0.02 X 10*3/uL (0.00-0.10); Basophils % (A) 0.2 %; Eosinophils # (A) 0.03 X 10*3/uL (0.04-0.35); Eosinophils % (A) 0.3 %; HCT 27.5 % (37.2-46.3); HGB 8.8 g/dL (12.0-15.0); Lymphocytes # (A) 1.16 X 10*3/uL (0.90-5.00); Lymphocytes % (A) 9.9 %; MCH 27.2 pg (27.0-32.0); MCV 85.1 FL (80.0-97.0); Mean Platelet Volume 11.1 FL (9.5-12.2); Monocytes # (A) 0.28 X 10*3/uL (0.20-1.00); Monocytes % (A) 2.4 %; NRBC Per 100 WBC 0 X 10*3/uL (0.00-0.01); Neutrophils # (A) 10.09 X 10*3/uL (1.80-7.70); Neutrophils % (A) 86.1 %; Platelet Count 169 X 10*3/uL (140-440); RBC 3.23 X 10*6/uL (4.10-5.20); RDW 14.2 % (11.5-14.5); WBC 11.71 X 10*3/uL (4.50-10.00)
[2023-09-29] MEDS ORDERED: AZITHROMYCIN 250 MG TAB PO SCH (09:00)
[2023-09-29 09:38] LABS: ALT 26 U/L (8-44); AST 22 U/L (13-35); Albumin 2.8 g/dL (3.8-4.9); Albumin/Globulin Ratio 1.47 Ratio (1.60-3.17); Alkaline Phosphatase 61 U/L (41-126); Blood Urea Nitrogen 3.9 mg/dL (9.0-27.0); Calcium 7.7 mg/dL (8.7-10.3); Carbon Dioxide 22.7 mmol/L (21.6-31.8); Chloride 104 mmol/L (96-109); Globulin 1.9 g/dL (1.6-3.3); Glucose 98 mg/dL (70-110); Potassium 3.8 mmol/L (3.5-5.5); Sodium 136 mmol/L (135-145); Total Bilirubin <0.2 mg/dL (0.3-1.2); Total Protein 4.7 g/dL (6.2-8.2)
--- NOTE | 2023-09-29 13:10 | P.PN ---
Subjective Progress Note Date: 09/29/23 Principal diagnosis: Reason for follow-up is influenza, pneumonia and positive blood culture Patient is a 28-year-old female with a past medical history significant for asthma patient started getting sick about 3 days ago before presentation to the hospital generalized bodyaches not feeling well also have a cough diagnosed with influenza started on Tamiflu now presented to us with right-sided chest pain cough has been diagnosed with pneumonia. On today's evaluation that is 09/29/2023, the patient did have improvement her fever pattern however she did have a fever 100.2 F this morning patient is currently breathing comfortably on room air not requiring any oxygen, the patient denies right-sided chest pain has decreased in intensity still have a cough not bring up any sputum, the patient denies nausea vomiting no abdominal pain no diarrhea. White count is down to 11.71, creatinine 0.5, procalcitonin 6.68 blood culture with the coagulase-negative staph Objective - Vital Signs Vital signs: Vital Signs Temp 100.2 F H 09/29/23 08:00 Pulse 113 H 09/29/23 08:00 Resp 16 09/29/23 08:03 BP 107/73 09/29/23 08:00 Pulse Ox 97 09/29/23 08:00 FiO2 Intake & Output 09/28/23 09/29/23 09/29/23 18:59 06:59 18:59 Intake Total 118 Balance 118 Intake: Oral 118 Other: Voiding Method Toilet Toilet Toilet # Voids 1 1 - Exam GENERAL DESCRIPTION: Middle-aged female up in bed in no distress RESPIRATORY SYSTEM: Unlabored breathing , coarse breath sounds at right base HEART: S1 S2 regular rate and rhythm , ABDOMEN: Soft , no tenderness EXTREMITIES: No edema feet - Labs CBC & Chem 7: 09/29/23 06:04 09/29/23 06:04 Labs: Abnormal Lab Results - Last 24 Hours (Table) 09/29/23 09/29/23 Range/Units 06:04 06:04 WBC 11.71 H (4.50-10.00) X 10*3/uL RBC 3.23 L (4.10-5.20) X 10*6/uL Hgb 8.8 L (12.0-15.0) g/dL Hct 27.5 L (37.2-46.3) % Immature Gran # 0.13 H (0.00-0.04) X 10*3/uL Neutrophils # 10.09 H (1.80-7.70) X 10*3/uL Eosinophils # 0.03 L (0.04-0.35) X 10*3/uL BUN 3.9 L (9.0-27.0) mg/dL Creatinine 0.5 L (0.6-1.5) mg/dL BUN/Creatinine Ratio 7.80 L (12.00-20.00) Ratio Calcium 7.7 L (8.7-10.3) mg/dL Total Bilirubin <0.2 L (0.3-1.2) mg/dL C-Reactive Protein 20.00 H (0.00-0.80) mg/dL Total Protein 4.7 L (6.2-8.2) g/dL Albumin 2.8 L (3.8-4.9) g/dL Albumin/Globulin Ratio 1.47 L (1.60-3.17) Ratio Microbiology - Last 24 Hours (Table) 09/27/23 14:45 Blood Culture Gram Stain - Preliminary Blood 09/27/23 14:50 Blood Culture Gram Stain - Preliminary Blood Assessment and Plan (1) Positive blood culture Current Visit: Yes Status: Acute Code(s): R78.81 - BACTEREMIA SNOMED Code(s): 493180910 (2) Influenza Current Visit: Yes Status: Acute Code(s): J11.1 - FLU DUE TO UNIDENTIFIED INFLUENZA VIRUS W OTH RESP MANIFEST SNOMED Code(s): 7220843 (3) Pneumonia Current Visit: Yes Status: Acute Code(s): J18.9 - PNEUMONIA, UNSPECIFIED ORGANISM SNOMED Code(s): 627839110 (4) Sepsis Current Visit: Yes Status: Acute Code(s): A41.9 - SEPSIS, UNSPECIFIED ORGANISM SNOMED Code(s): 23575244 Plan: 1patient presented to hospital with sepsis in this patient who did have a fever tachycardia elevated white count elevated lactic acid sources have right-sided pneumonia likely community-acquired in this patient who was recently diagnosed with the influenza B and has taken Tamiflu for about 2 days before presentation to the hospital 2-we will try to obtain a sputum for Gram stain patient did have elevated CRP and a procalcitonin 3-patient to continue with Tamiflu to finish a 5-day course of therapy 4-positive blood culture with coagulase-negative staph possible skin contamination blood cultures will be repeated document clearance no need for vancomycin 5-patient to continue with Rocephin 2 g daily while waiting for the culture to finalize and monitor clinical course closely Patient has been insisting on going home has been advised to stay in the hospital till at least resolution of her fever admission white count normalized Dictation was produced using [employer] dictation software. please excuse any grammatical, word or spelling errors. Time with Patient: Greater than 30
[2023-09-29] MEDS: SODIUM CHLORIDE 0.9% 1,000 ML IV SCH ×2 (13:18→14:26)
[2023-09-29] MEDS: HEPARIN SODIUM,PORCINE 5,000 UNIT/ML 1 ML VIAL SQ SCH (21:34)
[2023-09-29] MEDS: BENZOCAINE/MENTHOL LOZENG 1 EACH LOZENGE MUCOUS MEM PRN (21:35)
[2023-09-30] MEDS: BENZOCAINE/MENTHOL LOZENG 1 EACH LOZENGE MUCOUS MEM PRN (03:10)
[2023-09-30] MEDS: HEPARIN SODIUM,PORCINE 5,000 UNIT/ML 1 ML VIAL SQ SCH ×2 (09:12→20:10)
[2023-09-30] MEDS: OSELTAMIVIR 75 MG CAP PO SCH ×2 (09:13→20:10)
[2023-09-30] MEDS: ACETAMINOPHEN TAB 500 MG TAB PO PRN ×3 (09:20→23:33)
[2023-09-30 09:55] LABS: Blood Urea Nitrogen 3.5 mg/dL (9.0-27.0); Calcium 8.2 mg/dL (8.7-10.3); Carbon Dioxide 24.1 mmol/L (21.6-31.8); Chloride 102 mmol/L (96-109); Glucose 94 mg/dL (70-110); Potassium 3.6 mmol/L (3.5-5.5); Sodium 136 mmol/L (135-145)
--- NOTE | 2023-09-30 10:15 | P.PN ---
Subjective Progress Note Date: 09/29/23 This is a pleasant 28-year-old female who presented to the emergency department with right-sided rib pain with coughing and having fevers and was recently diagnosed with influenza B infection. Patient reports to having some increased coughing and not bringing up much sputum. Patient also noted to be 6 weeks and reports currently does not have a primary care provider at this time. Patient does have a past medical history of asthma, peripartum cardiomyopathy, anxiety/depression. Patient reports she never smoked denies any alcohol use and denies any illicit drug use. Patient reports she is looking for a primary care provider in the outpatient setting. Patient has not received obstetric care as of yet. Chest x-ray in the ER showed moderate size pneumonic infiltrate on the right mid and lower lobe as well as air bronchograms noted. Patient was given a dose of Tamiflu in the ER as well as ceftriaxone. Patient was admitted for pneumonia and acute influenza infection. Infectious disease along with obstetrics consulted and pending. 09/29/2023 Patient is seen in follow-up today currently maintained on antibiotics with infectious disease following. Patient reports continued rib pain although slightly improved. Patient is asking when she can go home although blood cultures were positive and awaiting repeat cultures to finalize. Procalcitonin was drawn and is elevated above 6 and encouraged the patient to stay in the hospital for continued treatment. Patient also continues to be tacky and febrile. Patient is 6 weeks and CORRECTIONAL MANAGER to evaluate. Review of systems: Constitutional: No reports of fatigue, fever, or chills Cardiovascular: No reports of chest pain or palpitations Respiratory: No reports of shortness of breath or cough GI: No reports of nausea, vomiting, or diarrhea : No reports of dysuria or retention Neurovascular: No reports of weakness or numbness All medications have been reviewed PHYSICAL EXAMINATION: GENERAL: The patient is alert and oriented x3, appears fatigued. Well developed, well nourished. HEENT: Pupils are round and equally reacting to light. EOMI. No scleral icterus. No conjunctival pallor. Normocephalic, atraumatic. No pharyngeal erythema. No thyromegaly. CARDIOVASCULAR: S1 and S2 present. No murmurs, rubs, or gallops. Tachycardic PULMONARY: Diminished breath sounds bilaterally otherwise chest is clear to au scultation, no significant wheezing or crackles. ABDOMEN: Soft, nontender, nondistended, normoactive bowel sounds. No palpable organomegaly. MUSCULOSKELETAL: No joint swelling or deformity. EXTREMITIES: No cyanosis, clubbing, or pedal edema. NEUROLOGICAL: Gross neurological examination did not reveal any focal deficits. SKIN: No rashes. Assessment: Acute influenza B infection 6 weeks gestation Right mid and lower lung pneumonia, community-acquired with elevated procalcitonin of 6 Bacteremia with positive blood cultures possibly secondary to pneumonia and will repeat cultures and await finalized culture to determine clearance of bacteremia History of asthma, not in exacerbation Leukocytosis, secondary to pneumonia Lactic acidosis secondary to pneumonia, improved recently History of peripartum cardiomyopathy after her last 4 years ago History of Anxiety/Depression GI prophylaxis DVT prophylaxis Full code Plan: Patient appears clinically dry and will continue with gentle IV hydration and follow-up on repeat labs Replace electrolytes per protocol including potassium Patient continued on ceftriaxone with concerns of right side pneumonia with infectious disease following. Procalcitonin elevated above 6. Initial blood cultures positive and awaiting repeat cultures to determine bacteremia clearance Patient also with acute influenza B infection continued on Tamiflu and will continue Obstetrics consulted and pending as patient is 6 weeks gestation Encouraged increase activity as tolerated Encourage incentive spirometer and encourage at least 10 times every hour while awake Patient is slightly tachycardic and recommend continued telemetry monitoring Patient wants to go home although patient is agreeable to stay as patient does have positive blood cultures as well as an elevated procalcitonin. The impression and plan of care has been dictated by May Billingsley, Nurse Practitioner as directed. Dr. Kristin MD I have performed a history and examination and MDM of this patient, discussed the same with the dictator, and agree with the dictator's assessment and plan as written ,documented as a scribe. Based on total visit time, I have performed more than 50% of the visit. Objective - Vital Signs Vital signs: Vital Signs Temp 100.2 F H 09/29/23 08:00 Pulse 113 H 09/29/23 08:00 Resp 16 09/29/23 08:00 BP 107/73 09/29/23 08:00 Pulse Ox 97 09/29/23 08:00 FiO2 Intake & Output 09/28/23 09/29/23 09/29/23 18:59 06:59 18:59 Intake Total 118 Balance 118 Intake: Oral 118 Other: Voiding Method Toilet Toilet # Voids 1 1 - Labs CBC & Chem 7: 09/29/23 06:04 09/30/23 06:03 Labs: Abnormal Lab Results - Last 24 Hours (Table) 09/29/23 09/29/23 Range/Units 06:04 06:04 WBC 11.71 H (4.50-10.00) X 10*3/uL RBC 3.23 L (4.10-5.20) X 10*6/uL Hgb 8.8 L (12.0-15.0) g/dL Hct 27.5 L (37.2-46.3) % Immature Gran # 0.13 H (0.00-0.04) X 10*3/uL Neutrophils # 10.09 H (1.80-7.70) X 10*3/uL Eosinophils # 0.03 L (0.04-0.35) X 10*3/uL BUN 3.9 L (9.0-27.0) mg/dL Creatinine 0.5 L (0.6-1.5) mg/dL BUN/Creatinine Ratio 7.80 L (12.00-20.00) Ratio Calcium 7.7 L (8.7-10.3) mg/dL Total Bilirubin <0.2 L (0.3-1.2) mg/dL C-Reactive Protein 20.00 H (0.00-0.80) mg/dL Total Protein 4.7 L (6.2-8.2) g/dL Albumin 2.8 L (3.8-4.9) g/dL Albumin/Globulin Ratio 1.47 L (1.60-3.17) Ratio Microbiology - Last 24 Hours (Table) 09/27/23 14:45 Blood Culture Gram Stain - Preliminary Blood 09/27/23 14:50 Blood Culture Gram Stain - Preliminary Blood
[2023-09-30 10:16] LABS: HGB 10.1 g/dL (12.0-15.0); MCH 27.3 pg (27.0-32.0); MCHC 32.6 g/dL (32.0-37.0); MCV 83.8 FL (80.0-97.0); Mean Platelet Volume 10.5 FL (9.5-12.2); NRBC Per 100 WBC 0 X 10*3/uL (0.00-0.01); Platelet Count 223 X 10*3/uL (140-440); RDW 14.4 % (11.5-14.5); WBC 10.54 X 10*3/uL (4.50-10.00)
[2023-09-30 10:17] LABS: Basophils # (M) 0 X 10*3/uL (0.00-0.10); Eosinophils # (M) 0 X 10*3/uL (0.04-0.35); Lymphocytes # (M) 2.21 X 10*3/uL (0.90-5.00); Monocytes # (M) 0.42 X 10*3/uL (0.20-1.00); Neutrophils % (M) 75 %; RBC Morphology Normal (Normal)
[2023-09-30] MEDS: SODIUM CHLORIDE 0.9% 1,000 ML IV SCH ×2 (16:08→23:32)
[2023-10-01] MEDS: ACETAMINOPHEN TAB 500 MG TAB PO PRN ×2 (09:10→13:47)
[2023-10-01] MEDS: OSELTAMIVIR 75 MG CAP PO SCH (09:12)
[2023-10-01] MEDS: HEPARIN SODIUM,PORCINE 5,000 UNIT/ML 1 ML VIAL SQ SCH ×2 (09:12→09:13)
--- NOTE | 2023-10-01 09:42 | P.PN ---
Subjective Progress Note Date: 09/30/23 Principal diagnosis: Reason for follow-up is influenza, pneumonia and positive blood culture Patient is a 28-year-old female with a past medical history significant for asthma patient started getting sick about 3 days ago before presentation to the hospital generalized bodyaches not feeling well also have a cough diagnosed with influenza started on Tamiflu now presented to us with right-sided chest pain cough has been diagnosed with pneumonia. On today's evaluation that is 09/30/2023, the patient denies having any fever or any chills, patient is breathing comfortably on room air, the patient denies having any chest pain shortness of breath , patient cough has decreased in intensity and not bringing up any sputum, patient denies having any nausea vomiting diarrhea and abdominal pain. Patient white count is down to 10.54, creatinine 0.5 blood cultures growing strep pneumo in addition to the coagulase-negative staph Objective - Vital Signs Vital signs: Vital Signs Temp 99.5 F 09/30/23 08:00 Pulse 109 H 09/30/23 08:00 Resp 15 09/30/23 08:00 BP 109/75 09/30/23 08:00 Pulse Ox 97 09/30/23 08:00 FiO2 Intake & Output 09/29/23 09/30/23 09/30/23 18:59 06:59 18:59 Intake Total 222 1500 Balance 222 1500 Intake: Oral 222 1500 Other: Voiding Method Toilet Toilet # Voids 5 # Bowel Movements 2 - Exam GENERAL DESCRIPTION: Middle-aged female up in bed in no distress RESPIRATORY SYSTEM: Unlabored breathing , coarse breath sounds at right base HEART: S1 S2 regular rate and rhythm , ABDOMEN: Soft , no tenderness EXTREMITIES: No edema feet - Labs CBC & Chem 7: 09/30/23 06:03 09/30/23 06:03 Labs: Abnormal Lab Results - Last 24 Hours (Table) 09/29/23 09/30/23 09/30/23 Range/Units 06:04 06:03 06:03 WBC 10.54 H (4.50-10.00) X 10*3/uL RBC 3.70 L (4.10-5.20) X 10*6/uL Hgb 10.1 L (12.0-15.0) g/dL Hct 31.0 L (37.2-46.3) % Eosinophils # (Manual) 0 L (0.04-0.35) X 10*3/uL BUN 3.5 L (9.0-27.0) mg/dL Creatinine 0.5 L (0.6-1.5) mg/dL BUN/Creatinine Ratio 7.00 L (12.00-20.00) Ratio Calcium 8.2 L (8.7-10.3) mg/dL Procalcitonin 6.68 H (0.02-0.09) ng/mL Microbiology - Last 24 Hours (Table) 09/27/23 14:50 Blood Culture Gram Stain - Preliminary Blood Blood Culture - Preliminary Coagulase Negative Staph 09/27/23 14:45 Blood Culture Gram Stain - Preliminary Blood Blood Culture - Preliminary Streptococcus pneumoniae Assessment and Plan (1) Positive blood culture Current Visit: Yes Status: Acute Code(s): R78.81 - BACTEREMIA SNOMED Code(s): 921174962 (2) Influenza Current Visit: Yes Status: Acute Code(s): J11.1 - FLU DUE TO UNIDENTIFIED INFLUENZA VIRUS W OTH RESP MANIFEST SNOMED Code(s): 5543886 (3) Pneumonia Current Visit: Yes Status: Acute Code(s): J18.9 - PNEUMONIA, UNSPECIFIED ORGANISM SNOMED Code(s): 473259325 (4) Sepsis Current Visit: Yes Status: Acute Code(s): A41.9 - SEPSIS, UNSPECIFIED ORGANISM SNOMED Code(s): 94127914 Plan: 1patient presented to hospital with sepsis in this patient who did have a fever tachycardia elevated white count elevated lactic acid sources have right-sided pneumonia likely community-acquired in this patient who was recently diagnosed with the influenza B and has taken Tamiflu for about 2 days before presentation to the hospital 2-sputum culture not collected blood cultures also growing strep pneumo in addition to the coagulase-negative staph 3-patient to continue with Tamiflu to finish a 5-day course of therapy 4-patient has been advised to stay in the hospital continue with IV Rocephin while waiting for sensitivities on the strep pneumo to be finalized Patient has been insisting on going home has been advised to stay in the hospital till at least resolution of her fever admission white count normalized Dictation was produced using [employer] dictation software. please excuse any grammatical, word or spelling errors.
[2023-10-01] MEDS: SODIUM CHLORIDE 0.9% 1,000 ML IV SCH (15:05)
--- NOTE | 2023-10-01 15:13 | P.PN ---
Subjective Progress Note Date: 10/01/23 Principal diagnosis: Reason for follow-up is influenza, pneumonia and positive blood culture Patient is a 28-year-old female with a past medical history significant for asthma patient started getting sick about 3 days ago before presentation to the hospital generalized bodyaches not feeling well also have a cough diagnosed with influenza started on Tamiflu now presented to us with right-sided chest pain cough has been diagnosed with pneumonia. On today's evaluation that is 10/01/2023, the patient remains to be afebrile, patient is breathing comfortably on room air and no need for supplemental oxygen, the patient denies chest pain shortness of breath, the patient cough is decreased in intensity and not bring up any sputum, patient denies abdominal pain and no nausea vomiting or diarrhea, has been complaining of feeling tired and not getting enough sleep. No new labs has been obtained today blood cultures so far negative one of the blood culture with strep pneumo that is sensitive to ceftriaxone Objective - Vital Signs Vital signs: Vital Signs Temp 98.3 F 10/01/23 07:43 Pulse 92 10/01/23 07:43 Resp 14 10/01/23 07:43 BP 108/71 10/01/23 07:43 Pulse Ox 98 10/01/23 07:43 FiO2 Intake & Output 09/30/23 10/01/23 10/01/23 18:59 06:59 18:59 Other: Voiding Method Toilet - Exam GENERAL DESCRIPTION: Middle-aged female up in bed in no distress RESPIRATORY SYSTEM: Unlabored breathing , coarse breath sounds at right base HEART: S1 S2 regular rate and rhythm , ABDOMEN: Soft , no tenderness EXTREMITIES: No edema feet - Labs CBC & Chem 7: 09/30/23 06:03 09/30/23 06:03 Labs: Microbiology - Last 24 Hours (Table) 09/27/23 14:50 Blood Culture Gram Stain - Final Blood Blood Culture - Final Staph hominis sub sp. hominis 09/29/23 07:01 Blood Culture - Preliminary Blood 09/27/23 14:45 Blood Culture Gram Stain - Preliminary Blood Blood Culture - Preliminary Streptococcus pneumoniae Coagulase Negative Staph Assessment and Plan (1) Positive blood culture Current Visit: Yes Status: Acute Code(s): R78.81 - BACTEREMIA SNOMED Code(s): 203996594 (2) Influenza Current Visit: Yes Status: Acute Code(s): J11.1 - FLU DUE TO UNIDENTIFIED INFLUENZA VIRUS W OTH RESP MANIFEST SNOMED Code(s): 7001561 (3) Pneumonia Current Visit: Yes Status: Acute Code(s): J18.9 - PNEUMONIA, UNSPECIFIED ORGANISM SNOMED Code(s): 434574551 (4) Sepsis Current Visit: Yes Status: Acute Code(s): A41.9 - SEPSIS, UNSPECIFIED ORGANISM SNOMED Code(s): 95802321 Plan: 1patient presented to hospital with sepsis in this patient who did have a fever tachycardia elevated white count elevated lactic acid sources have right-sided pneumonia likely community-acquired in this patient who was recently diagnosed with the influenza B and has taken Tamiflu for about 2 days before presentation to the hospital 2-sputum culture not collected blood cultures also growing strep pneumo in addition to the coagulase-negative staph 3-patient has completed a 5-day course of Tamiflu which will be discontinued y 4-patient to continue with Rocephin 2 g daily has been insisting on going home advised to stay for another day on antibiotic if the patient continued to insist may consider Omnicef on discharge prescription sent to the pharmacy Dictation was produced using [employer] dictation software. please excuse any grammatical, word or spelling errors. Time with Patient: Less than 30
[2023-10-01 16:32] VITALS: BP 105/67; PULSE 106; RESP 16; TEMP 98.5
== END 2023-10-01 16:42 | disposition home or self-care (01) | DRG 831 ==
LOC: EC 11:04 → 4SSUR 17:43 → 6NMEDSUR 21:14
PROVIDERS: ADMIT Hospitalist; ATTEND Hospitalist
DX: O98.811 Other maternal infectious and parasitic diseases complicating pregnancy, first trimester (principal); A40.3 Sepsis due to Streptococcus pneumoniae; J12.89 Other viral pneumonia; J10.01 Influenza due to other identified influenza virus with the same other identified influenza virus pneumonia; O99.511 Diseases of the respiratory system complicating pregnancy, first trimester; J45.909 Unspecified asthma, uncomplicated; Z3A.01 Less than 8 weeks gestation of pregnancy; Z87.891 Personal history of nicotine dependence; Z79.899 Other long term (current) drug therapy
CPT/HCPCS: 36415; 71045; 80048; 80053; 81001; 83605; 84145; 85025; 85027; 86140; 87040; 87077; 87186; 93005; 96361; 96365; 99285

== ENCOUNTER 2023-10-17 11:26 | Emergency (ER) | payer OTHER ==
--- NOTE | 2023-10-17 12:01 | ED ---
Female Urogenital HPI - General Chief complaint: Vaginal Bleeding Stated complaint: poss Miscarriage 8wks Time Seen by Provider: 10/17/23 11:35 Source: patient, RN notes reviewed Mode of arrival: ambulatory Limitations: no limitations - History of Present Illness Initial comments: This is a 28-year-old female who presents to the emergency department for vaginal bleeding in . Patient is 8 weeks and . She was recently hospitalized earlier this month for influenza, pneumonia, and bacteremia. She still feels weak and is somewhat slow to recover from this, but in general does feel better. States that about a week ago she started to develop vaginal bleeding. She went to [facility] and they did an ultrasound. They compared it to an ultrasound she had done about 3 weeks ago, and she was told that the fetus was not growing appropriately and they could not find a heartbeat, and advised that she likely had a miscarriage. However, they said that they did not have an [employer] there and she should go elsewhere for further evaluation. The bleeding has continued, but not to where she is going through pads. Reports minor pelvic pain and cramping. MD Complaint: vaginal bleeding - Related Data Home Medications Medication Instructions Recorded Confirmed L.acidoph,Paracasei, B.lactis 1 cap PO DAILY 09/27/23 09/27/23 [Probiotic] Metoclopramide [Reglan] 10 mg PO ACHS PRN 09/27/23 09/27/23 Multivitamins, Thera [Multivitamin 1 tab PO DAILY 09/27/23 09/27/23 (formulary)] Previous Rx's Medication Instructions Recorded Cefdinir [Omnicef] 300 mg PO Q12HR #20 capsule 10/01/23 Allergies Allergy/AdvReac Type Severity Reaction Status Date / Time No Known Allergies Allergy Verified 10/17/23 11:34 Review of Systems ROS Statement: Those systems with pertinent positive or pertinent negative responses have been documented in the HPI. ROS Other: All systems not noted in ROS Statement are negative. Past Medical History Past Medical History: Asthma Additional Past Medical History / Comment(s): debbi- cardiomyopathy History of Any Multi-Drug Resistant Organisms: None Reported Past Surgical History: Tonsillectomy Additional Past Surgical History / Comment(s): in 7th grade Past Anesthesia/Blood Transfusion Reactions: Postoperative Nausea & Vomiting (PONV) Past Psychological History: Anxiety, Depression Smoking Status: Never smoker Past Alcohol Use History: None Reported Past Drug Use History: None Reported - Past Family History Father Additional Family Medical History / Comment(s): Father is age 50 with history of alcoholism Mother Family Medical History: Osteoarthritis (OA) Additional Family Medical History / Comment(s): Mother is age 46 and has osteoarthritis and ADD Brother(s) Additional Family Medical History / Comment(s): Patient has 2 younger brothers with no major medical problems. General Exam Limitations: no limitations General appearance: alert, in no apparent distress Head exam: Present: atraumatic, normocephalic, normal inspection Respiratory exam: Present: normal lung sounds bilaterally. Absent: respiratory distress, wheezes, rales, rhonchi, stridor Cardiovascular Exam: Present: regular rate, normal rhythm, normal heart sounds. Absent: systolic murmur, diastolic murmur, rubs, gallop, clicks Neurological exam: Present: alert, oriented X3, CN II-XII intact Psychiatric exam: Present: normal affect, normal mood Skin exam: Present: warm, dry, intact, normal color. Absent: rash Course Vital Signs 10/17/23 10/17/23 11:31 13:48 Temperature 98.4 F 98.6 F Pulse Rate 109 H 94 Respiratory 20 18 Rate Blood Pressure 127/82 112/75 O2 Sat by Pulse 100 99 Oximetry Medical Decision Making - Medical Decision Making This is a 28 year old female who presents to the emergency department for vaginal bleeding in . Was pt. sent in by a medical professional or institution? @ -No Did you speak to anyone other than the patient for history? @ -No Did you review nursing and triage notes? @ -Yes, and I agree, it is accurate with regards to the patient's symptoms. Were old charts reviewed? @ -No Differential Diagnosis? @ -Differential Vaginal Bleeding: Spontaneous , threatened , molar , ectopic , incompetent cervix, placenta previa, uterine rupture, dysfunctional uterine bleeding, hemorrhage, uterine fibroids, malignancy, coagulopathy, PID, cervicitis, adenomyosis, vaginal trauma, this is not meant to be an all- inclusive list. EKG interpreted by me (3pts min.)? @ -Not obtained X-rays interpreted by me (1pt min.)? @ -Not obtained CT interpreted by me (1pt min.)? @ -Not obtained U/S interpreted by me (1pt. min.)? @ -Obstetrics ultrasound obtained. My interpretation identifies no evidence of an intrauterine . What testing was considered but not performed? (CT, X-rays, U/S, labs)? Why? @ -None What meds were considered but not given? Why? @ -None Did you discuss the management of the patient with other professionals? @ -No Did you reconcile home meds? @ -No Was smoking cessation discussed for >3mins.? @ -No Was critical care preformed (if so, how long)? @ -No Were there social determinants of health that impacted care today? How? (Homelessness, low income, unemployed, alcoholism, drug addiction, transportation, low edu. Level, literacy, decrease access to med. care, assisted, rehab)? @ -No Was there de-escalation of care discussed even if they declined? (Discuss DNR or withdrawal of care, Hospice)? @ -No What co-morbidities impacted this encounter? (DM, HTN, Smoking, COPD, CAD, Ca ncer, CVA, Hep., AIDS, mental health diagnosis, sleep apnea, morbid obesity)? @ - Was patient admitted / discharged? @ -Discharged. Lab work obtained revealing mild leukocytosis. HCG is 12,511. OB ultrasound demonstrates a gestational sac with a yolk sac, however no pole or cardiac activity was identified. Patient recalls that from her blood work done at [facility], her hCG had been down trending. It was i nitially 20,000, followed by 16,000. Given that it is now 12,000, in conjunction with the current ultrasound findings, this is suggestive of demise. She is A positive and no RhoGAM was indicated. Lab slip provided to have her hCG count repeated in 48 hours. Patient discharged home in stable c ondition. Undiagnosed new problem with uncertain prognosis? @ -None Drug Therapy requiring intensive monitoring for toxicity (Heparin, Nitro, In sulin, Cardizem)? @ -None Were any procedures done? @ -None Diagnosis/symptom? @ -Incomplete Acute, or Chronic, or Acute on Chronic? @ -Acute Uncomplicated (without systemic symptoms) or Complicated (systemic symptoms)? @ -Uncomplicated Side effects of treatment? @ -None Exacerbation, Progression, or Severe Exacerbation] @ -Not applicable Poses a threat to life or bodily function? @ -No Return precautions reviewed in depth, the patient is instructed to return to the emergency department with any new, worsening, or concerning symptoms. Patient verbalized understanding. This case was discussed in detail with the attending ED physician, Dr. Rankin. Presentation, findings, and treatment plan discussed in detail as well. - Lab Data Result diagrams: 10/17/23 12:00 10/17/23 12:00 Lab Results 10/17/23 10/17/23 10/17/23 Range/Units 12:00 12:00 12:00 WBC 12.8 H (3.8-10.6) k/uL RBC 4.42 (3.80-5.40) m/uL Hgb 12.2 (11.4-16.0) gm/dL Hct 38.1 (34.0-46.0) % MCV 86.2 (80.0-100.0) fL MCH 27.6 (25.0-35.0) pg MCHC 32.0 (31.0-37.0) g/dL RDW 14.6 (11.5-15.5) % Plt Count 406 D (150-450) k/uL MPV 6.9 Neutrophils % 79 % Lymphocytes % 13 % Monocytes % 5 % Eosinophils % 2 % Basophils % 0 % Neutrophils # 10.1 H (1.3-7.7) k/uL Lymphocytes # 1.7 (1.0-4.8) k/uL Monocytes # 0.6 (0-1.0) k/uL Eosinophils # 0.2 (0-0.7) k/uL Basophils # 0.1 (0-0.2) k/uL Sodium 136 L (137-145) mmol/L Potassium 4.3 (3.5-5.1) mmol/L Chloride 105 (98-107) mmol/L Carbon Dioxide 26 (22-30) mmol/L Anion Gap 5 mmol/L BUN 6 L (7-17) mg/dL Creatinine 0.49 L (0.52-1.04) mg/dL Est GFR (CKD-EPI)AfAm >90 (>60 ml/min/1.73 sqM) Est GFR (CKD-EPI)NonAf >90 (>60 ml/min/1.73 sqM) Glucose 100 H (74-99) mg/dL Calcium 9.4 (8.4-10.2) mg/dL Total Bilirubin 0.5 (0.2-1.3) mg/dL AST 24 (14-36) U/L ALT 25 (4-34) U/L Alkaline Phosphatase 73 (38-126) U/L Total Protein 6.8 (6.3-8.2) g/dL Albumin 4.0 (3.5-5.0) g/dL HCG, Quant 15274.3 mIU/mL Urine Color Yellow Urine Appearance Clear (Clear) Urine pH 7.0 (5.0-8.0) Ur Specific [place] 1.017 (1.001-1.035) Urine Protein Negative (Negative) Urine Glucose (UA) Negative (Negative) Urine Ketones Negative (Negative) Urine Blood Moderate H (Negative) Urine Nitrite Negative (Negative) Urine Bilirubin Negative (Negative) Urine Urobilinogen <2.0 (<2.0) mg/dL Ur Leukocyte Esterase Trace H (Negative) Urine RBC >182 H (0-5) /hpf Urine WBC 6 H (0-5) /hpf Ur Squamous Epith Cells 1 (0-4) /hpf Urine Mucus Rare H (None) /hpf Blood Type Blood Type Recheck Bld Type Recheck Status 10/17/23 Range/Units 12:00 WBC (3.8-10.6) k/uL RBC (3.80-5.40) m/uL Hgb (11.4-16.0) gm/dL Hct (34.0-46.0) % MCV (80.0-100.0) fL MCH (25.0-35.0) pg MCHC (31.0-37.0) g/dL RDW (11.5-15.5) % Plt Count (150-450) k/uL MPV Neutrophils % % Lymphocytes % % Monocytes % % Eosinophils % % Basophils % % Neutrophils # (1.3-7.7) k/uL Lymphocytes # (1.0-4.8) k/uL Monocytes # (0-1.0) k/uL Eosinophils # (0-0.7) k/uL Basophils # (0-0.2) k/uL Sodium (137-145) mmol/L Potassium (3.5-5.1) mmol/L Chloride (98-107) mmol/L Carbon Dioxide (22-30) mmol/L Anion Gap mmol/L BUN (7-17) mg/dL Creatinine (0.52-1.04) mg/dL Est GFR (CKD-EPI)AfAm (>60 ml/min/1.73 sqM) Est GFR (CKD-EPI)NonAf (>60 ml/min/1.73 sqM) Glucose (74-99) mg/dL Calcium (8.4-10.2) mg/dL Total Bilirubin (0.2-1.3) mg/dL AST (14-36) U/L ALT (4-34) U/L Alkaline Phosphatase (38-126) U/L Total Protein (6.3-8.2) g/dL Albumin (3.5-5.0) g/dL HCG, Quant mIU/mL Urine Color Urine Appearance (Clear) Urine pH (5.0-8.0) Ur Specific [place] (1.001-1.035) Urine Protein (Negative) Urine Glucose (UA) (Negative) Urine Ketones (Negative) Urine Blood (Negative) Urine Nitrite (Negative) Urine Bilirubin (Negative) Urine Urobilinogen (<2.0) mg/dL Ur Leukocyte Esterase (Negative) Urine RBC (0-5) /hpf Urine WBC (0-5) /hpf Ur Squamous Epith Cells (0-4) /hpf Urine Mucus (None) /hpf Blood Type A Positive Blood Type Recheck A Pos Bld Type Recheck Status No - Radiology Data Radiology results: report reviewed, image reviewed Disposition Clinical Impression: Incomplete Disposition: HOME SELF-CARE Instructions (If sedation given, give patient instructions): Miscarriage (ED) Additional Instructions: Return to the emergency department with any new, worsening, or concerning s ymptoms. Take the lab slip to have your blood work repeated in 2 days to have your hCG count rechecked. Your current hCG count is 12,511. Follow up with your primary care provider in 1-2 days. Is patient prescribed a controlled substance at d/c from ED?: No Referrals: Lucie Hewitt, [Doctor of Osteopathic Medicine] - 1-2 days None,Stated [Primary Care Provider] - 1-2 days Time of Disposition: 13:32
[2023-10-17 12:26] LABS: Basophils # (A) 0.1 k/uL (0-0.2); Basophils % (A) 0 %; Eosinophils # (A) 0.2 k/uL (0-0.7); Eosinophils % (A) 2 %; HCT 38.1 % (34.0-46.0); HGB 12.2 gm/dL (11.4-16.0); Lymphocytes # (A) 1.7 k/uL (1.0-4.8); Lymphocytes % (A) 13 %; MCH 27.6 pg (25.0-35.0); MCV 86.2 fL (80.0-100.0); Mean Platelet Volume 6.9; Monocytes # (A) 0.6 k/uL (0-1.0); Monocytes % (A) 5 %; Neutrophils # (A) 10.1 k/uL (1.3-7.7); Neutrophils % (A) 79 %; RBC 4.42 m/uL (3.80-5.40); RDW 14.6 % (11.5-15.5); WBC 12.8 k/uL (3.8-10.6)
[2023-10-17 12:28] LABS: AST 24 U/L (14-36); African American GFR (CKD) >90 (>60 ml/min/1.73 sqM); Alkaline Phosphatase 73 U/L (38-126); Anion Gap 5 mmol/L; Blood Urea Nitrogen 6 mg/dL (7-17); Calcium 9.4 mg/dL (8.4-10.2); Carbon Dioxide 26 mmol/L (22-30); Chloride 105 mmol/L (98-107); Glucose 100 mg/dL (74-99); Non-African American GFR(CKD) >90 (>60 ml/min/1.73 sqM); Sodium 136 mmol/L (137-145); Total Bilirubin 0.5 mg/dL (0.2-1.3); Total Protein 6.8 g/dL (6.3-8.2)
[2023-10-17 12:30] LABS: ALT 25 U/L (4-34); Platelet Count 406 k/uL (150-450); Potassium 4.3 mmol/L (3.5-5.1)
[2023-10-17 12:38] LABS: Appearance,Urine Clear (Clear); Bilirubin,Urine Negative (Negative); Blood,Urine Moderate (Negative); Color,Urine Yellow; Glucose,Urine (UA) Negative (Negative); Ketones,Urine Negative (Negative); Leukocyte Esterase,Urine Trace (Negative); Mucus,Urine Rare /hpf; Nitrite,Urine Negative (Negative); Protein,Urine Negative (Negative); RBC,Urine >182 /hpf (0-5); Specific Gravity,Urine 1.017 (1.001-1.035); Squamous Epithelial Cell,Urine 1 /hpf (0-4); Urobilinogen,Urine <2.0 mg/dL (<2.0); WBC,Urine 6 /hpf (0-5)
[2023-10-17 12:44] LABS: HCG,Quantitative Serum 12511.3 mIU/mL
--- NOTE | 2023-10-17 13:21 | US ---
EXAMINATION TYPE: Ultrasound OB <= 14 week fetus DATE OF EXAM: 10/17/2023 12:50 PM COMPARISON: NONE CLINICAL INDICATION: Female, 28 years old with history of Vaginal bleeding in ; Bleeding x 1 week EXAM PERFORMED: Transabdominal (TA) EXAM MEASUREMENTS: GESTATIONAL AGE / DATING Physician Established: Not yet established Dates by LMP: (9 weeks/0 days) EDC: 05/21/2024 Dates by First Scan: No previous this is first scan Dates by Current Scan for: No IUP seen at this time MATERNAL ANATOMY Uterus: 10.1 x 5.7 x 8.0 cm Right Ovary: 3.0 x 3.5 x 2.4 cm Left Ovary: 3.6 x 1.6 x 1.6 cm Post CDS / Adnexa: wnl Presence of free fluid: no Presence of corpus luteal cyst: no Presence of subchorionic bleed: no GESTATION / SURVEY Gestational sac measuring 1.2 cm (5 weeks 2 days) containing a possible 7.7 mm yolk sac within. No fe jayme pole or cardiac activity is seen. Beta HcG (if available): Not available at this time IMPRESSION: 1. A small gestational sac (5 weeks 2 days) containing a 7.7 mm yolk sac within. No pole or car diac activity. 2. Gestational sac size is much smaller than size by LMP (9 weeks 0 days). Correlate with serial beta hCG and ultrasound follow-up. Current differential considerations include early intrauterine pregnan cy as well as failed .
[2023-10-17 14:16] VITALS: BP 112/75; PULSE 94; RESP 18; TEMP 98.6
== END 2023-10-17 13:55 | disposition home or self-care (01) ==
LOC: EC 11:26
DX: O03.4 Incomplete spontaneous abortion without complication (principal); O99.511 Diseases of the respiratory system complicating pregnancy, first trimester; J45.909 Unspecified asthma, uncomplicated; Z86.59 Personal history of other mental and behavioral disorders; Z3A.09 9 weeks gestation of pregnancy
CPT/HCPCS: 36415; 76801; 80053; 81001; 84702; 85025; 86900; 86901; 99284